=== PATIENT | female | born 1985 | race Caucasian/White ===

== ENCOUNTER 2020-04-29 16:39 | Inpatient (IN) | payer OTHER ==
[~2020-04-29] VITALS: Ht 165.1 cm; Wt 119.4 kg
--- OUTSIDE RECORDS SUMMARY | 2020-04-29 16:46 | CCD ---
Author Author [facility] Organization [facility] Address Unknown Phone Unavailable Care Team Providers Care Supervisory Investigative Specialist Name Role Phone Natty Rabago ANP-BC Unavailable Unavailable Natty Rabagon ANP-BC Unavailable Unavailable ReedNatty Abril ANP-BC Unavailable Unavailable ReedNatty Abril ANP-BC Unavailable Unavailable ReedNatty Abril ANP-BC Unavailable Unavailable Natty Rabago Abril ANP-BC Unavailable Unavailable Natty Rabago Abril ANP-BC Unavailable Unavailable ReedaNtty Abril ANP-BC Unavailable Unavailable ReedNatty Abril ANP-BC Unavailable Unavailable ReedNatty Abril ANP-BC Unavailable Unavailable ReedNatty Abril ANP-BC Unavailable Unavailable ReedNatty Abril ANP-BC Unavailable Unavailable ReedNatty Abril ANP-BC Unavailable Unavailable ReedNatty Abril ANP-BC Unavailable Unavailable ReedNatty Abril ANP-BC Unavailable Unavailable ReedNatty Abril ANP-BC Unavailable Unavailable ReedNatty Abril ANP-BC Unavailable Unavailable ReedNatty Abril ANP-BC Unavailable Unavailable ReedNatty Abril ANP-BC Unavailable Unavailable ReedNatty Abril ANP-BC Unavailable Unavailable ReedNatty Abril ANP-BC Unavailable Unavailable ReedNatty Abril ANP-BC Unavailable Unavailable ReedNatty Abril ANP-BC Unavailable Unavailable ReedNatty Abril ANP-BC Unavailable Unavailable Reed, Natty Abril ANP-BC Unavailable Unavailable Reed, Natty Abril ANP-BC Unavailable Unavailable Reed, Natty Abril ANP-BC Unavailable Unavailable Reed, Natty Abril ANP-BC Unavailable Unavailable Reed, Natty Abril ANP-BC Unavailable Unavailable Reed, Natty Abril ANP-BC Unavailable Unavailable Reed, Natty Abril ANP-BC Unavailable Unavailable Reed, Natty Abril ANP-BC Unavailable Unavailable Reed, Natty Abril ANP-BC Unavailable Unavailable Reed, Natty Abril ANP-BC Unavailable Unavailable Reed, Natty Abril ANP-BC Unavailable Unavailable Reed, Natty Abril ANP-BC Unavailable Unavailable Reed, Natty Abril ANP-BC Unavailable Unavailable Reed, Natty Abril ANP-BC Unavailable Unavailable Reed, Natty Abril ANP-BC Unavailable Unavailable Reed, Natty Abril ANP-BC Unavailable Unavailable Reed, Natty Abril ANP-BC Unavailable Unavailable Reed, Natty Abril ANP-BC Unavailable Unavailable Reed, Natty Abril ANP-BC Unavailable Unavailable Reed, Natty Abril ANP-BC Unavailable Unavailable Reed, Natty Abril ANP-BC Unavailable Unavailable Reed, Natty Abril ANP-BC Unavailable Unavailable Reed, Natty Abril ANP-BC Unavailable Unavailable Reed, Natty Abril ANP-BC Unavailable Unavailable Reed, Natty Abril ANP-BC Unavailable Unavailable Reed, Natty Abril ANP-BC Unavailable Unavailable Reed, Natty Abril ANP-BC Unavailable Unavailable Reed, Natty Abril ANP-BC Unavailable Unavailable Reed, Natty Abril ANP-BC Unavailable Unavailable Reed, Natty Abril ANP-BC Unavailable Unavailable Reed, Natty Abril ANP-BC Unavailable Unavailable Reed, Natty Abril ANP-BC Unavailable Unavailable Reed, Natty Abril ANP-BC Unavailable Unavailable Reed, Natty Abril ANP-BC Unavailable Unavailable Reed, Natty Abril ANP-BC Unavailable Unavailable Reed, Natty Abril ANP-BC Unavailable Unavailable Reed, Natty Abril ANP-BC Unavailable Unavailable Reed, Natty Abril ANP-BC Unavailable Unavailable Reed, Natty Abril ANP-BC Unavailable Unavailable Reed, Natty Abril ANP-BC Unavailable Unavailable Reed, Natty Abril ANP-BC Unavailable Unavailable Reed, Natty Abril ANP-BC Unavailable Unavailable Reed, Natty Abril ANP-BC Unavailable Unavailable Reed, Natty Abril ANP-BC Unavailable Unavailable Reed, Natty Abril ANP-BC Unavailable Unavailable Reed, Natty Abril ANP-BC Unavailable Unavailable Reed, Natty Abril ANP-BC Unavailable Unavailable Reed, Natty Abril ANP-BC Unavailable Unavailable Reed, Natty Abril ANP-BC Unavailable Unavailable Reed, Natty Abril ANP-BC Unavailable Unavailable Reed, Natty Abril ANP-BC Unavailable Unavailable Reed, Natty Abril ANP-BC Unavailable Unavailable Reed, Natty Abril ANP-BC Unavailable Unavailable Reed, Natty Abril ANP-BC Unavailable Unavailable Reed, Natty Abril ANP-BC Unavailable Unavailable Reed, Natty Abril ANP-BC Unavailable Unavailable Reed, Natty Abril ANP-BC Unavailable Unavailable Reed, Natty Abril ANP-BC Unavailable Unavailable Reed, Natty Abril ANP-BC Unavailable Unavailable Reed, Natty Abril ANP-BC Unavailable Unavailable Reed, Natty Abril ANP-BC Unavailable Unavailable Reed, Natty Abril ANP-BC Unavailable Unavailable Reed, Natty Abril ANP-BC Unavailable Unavailable Reed, Natty Abril ANP-BC Unavailable Unavailable Reed, Natty Abril ANP-BC Unavailable Unavailable Reed, Natty Abril ANP-BC Unavailable Unavailable Reed, Natty Abril ANP-BC Unavailable Unavailable Reed, Natty Abril ANP-BC Unavailable Unavailable Reed, Natty Abril ANP-BC Unavailable Unavailable Reed, Natty Abril ANP-BC Unavailable Unavailable Reed, Natty Abril ANP-BC Unavailable Unavailable Reed, Natty Abril ANP-BC Unavailable Unavailable Reed, Natty Abril ANP-BC Unavailable Unavailable Reed, Natty Abril ANP-BC Unavailable Unavailable Reed, Natty Abril ANP-BC Unavailable Unavailable Reed, Natty Abril ANP-BC Unavailable Unavailable Reed, Natty Abril ANP-BC Unavailable Unavailable Reed, Natty Abril ANP-BC Unavailable Unavailable Reed, Natty Abril ANP-BC Unavailable Unavailable Reed, Natty Abril ANP-BC Unavailable Unavailable Reed, Natty Abril ANP-BC Unavailable Unavailable Reed, Natty Abril ANP-BC Unavailable Unavailable Reed, Natty Abril ANP-BC Unavailable Unavailable Reed, Natty Abril ANP-BC Unavailable Unavailable Reed, Natty Abril ANP-BC Unavailable Unavailable Reed, Natty Abril ANP-BC Unavailable Unavailable Reed, Natty Abril ANP-BC Unavailable Unavailable Reed, Natty Abril ANP-BC Unavailable Unavailable Reed, Natty Abril ANP-BC Unavailable Unavailable Reed, Natty Abril ANP-BC Unavailable Unavailable Reed, Natty Abril ANP-BC Unavailable Unavailable Reed, Natty Abril ANP-BC Unavailable Unavailable Reed, Natty Abril ANP-BC Unavailable Unavailable Reed, Natty Abril ANP-BC Unavailable Unavailable Reed, Natty Abril ANP-BC Unavailable Unavailable Reed, Natty Abril ANP-BC Unavailable Unavailable Reed, Natty Abril ANP-BC Unavailable Unavailable Reed, Natty Abril ANP-BC Unavailable Unavailable Reed, Natty Abril ANP-BC Unavailable Unavailable Reed, Natty Abril ANP-BC Unavailable Unavailable Ered, Natty Abril ANP-BC Unavailable Unavailable Reed, Natty Abril ANP-BC Unavailable Unavailable Reed, Natty Abril ANP-BC Unavailable Unavailable Reed, Natty Abril ANP-BC Unavailable Unavailable Reed, Natty Abril ANP-BC Unavailable Unavailable Reed, Natty Abril ANP-BC Unavailable Unavailable Reed, Natty Abril ANP-BC Unavailable Unavailable Reed, Natty Abril ANP-BC Unavailable Unavailable Reed, Natty Abril ANP-BC Unavailable Unavailable Reed, Natty Abril ANP-BC Unavailable Unavailable Reed, Natty Abril ANP-BC Unavailable Unavailable Reed, Natty Abril ANP-BC Unavailable Unavailable Reed, Natty Abril ANP-BC Unavailable Unavailable Reed, Natty Abril ANP-BC Unavailable Unavailable Reed, Natty Abril ANP-BC Unavailable Unavailable Reed, Natty Abril ANP-BC Unavailable Unavailable Reed, Natty Abril ANP-BC Unavailable Unavailable Reed, Natty Abril ANP-BC Unavailable Unavailable Reed, Natty Abril ANP-BC Unavailable Unavailable Reed, Natty Abril ANP-BC Unavailable Unavailable Reed, Natty Abril ANP-BC Unavailable Unavailable Reed, Natty Abril ANP-BC Unavailable Unavailable Reed, Natty Abril ANP-BC Unavailable Unavailable Reed, Natty Abril ANP-BC Unavailable Unavailable Reed, Natty Abril ANP-BC Unavailable Unavailable Reed, Natty Abril ANP-BC Unavailable Unavailable Reed, Natty Abril ANP-BC Unavailable Unavailable Reed, Natty Abril ANP-BC Unavailable Unavailable Reed, Natty Abril ANP-BC Unavailable Unavailable Reed, Natty Abril ANP-BC Unavailable Unavailable Reed, Natty Abril ANP-BC Unavailable Unavailable Reed, Natty Abril ANP-BC Unavailable Unavailable Reed, Natty Abril ANP-BC Unavailable Unavailable Reed, Natty Abril ANP-BC Unavailable Unavailable Reed, Natty Abril ANP-BC Unavailable Unavailable Reed, Natty Abril ANP-BC Unavailable Unavailable Reed, Natty Abril ANP-BC Unavailable Unavailable Reed, Natty Abril ANP-BC Unavailable Unavailable Reed, Natty Abril ANP-BC Unavailable Unavailable Reed, Natty Abril ANP-BC Unavailable Unavailable Reed, Natty Abril ANP-BC Unavailable Unavailable Reed, Natty Abril ANP-BC Unavailable Unavailable Reed, Natty Abril ANP-BC Unavailable Unavailable Reed, Natty Abril ANP-BC Unavailable Unavailable Reed, Natty Abril ANP-BC Unavailable Unavailable Reed, Natty Abril ANP-BC Unavailable Unavailable Reed, Natty Abril ANP-BC Unavailable Unavailable Reed, Natty Abril ANP-BC Unavailable Unavailable Reed, Natty Abril ANP-BC Unavailable Unavailable Reed, Natty Abril ANP-BC Unavailable Unavailable Reed, Natty Abril ANP-BC Unavailable Unavailable Reed, Natty Abril ANP-BC Unavailable Unavailable Reed, Natty Abril ANP-BC Unavailable Unavailable Reed, Natty Abril ANP-BC Unavailable Unavailable Reed, Natty Abril ANP-BC Unavailable Unavailable Reed, Natty Abril ANP-BC Unavailable Unavailable Reed, Natty Abril ANP-BC Unavailable Unavailable Reed, Natty Abril ANP-BC Unavailable Unavailable Reed, Natty Abril ANP-BC Unavailable Unavailable Reed, Natty Abril ANP-BC Unavailable Unavailable Reed, Natty Abril ANP-BC Unavailable Unavailable Reed, Natty Abril ANP-BC Unavailable Unavailable Reed, Natty Abril ANP-BC Unavailable Unavailable Reed, Natty Abril ANP-BC Unavailable Unavailable Reed, Natty Abril ANP-BC Unavailable Unavailable Reed, Natty Abril ANP-BC Unavailable Unavailable Reed, Natty Abril ANP-BC Unavailable Unavailable Reed, Natty Abril ANP-BC Unavailable Unavailable Re-disclosure Warning The records that you are about to access may contain information from federally-assisted alcohol or drug abuse programs. If such information is present, then the following federally mandated warning applies: This information has been disclosed to you from records protected by federal confidentiality rules (42 CFR part 2). The federal rules prohibit you from making any further disclosure of this information unless further disclosure is expressly permitted by the written consent of the person to whom it pertains or as otherwise permitted by 42 CFR part 2. A general authorization for the release of medical or other information is NOT sufficient for this purpose. The Federal rules restrict any use of the information to criminally investigate or prosecute any alcohol or drug abuse patient.The records that you are about to access may contain highly sensitive health information, the redisclosure of which is protected by Article 27-F of the [facility] Public Health law. If you continue you may have access to information: Regarding HIV / AIDS; Provided by facilities licensed or operated by the [facility] Office of Mental Health; or Provided by the [facility] Office for People With Developmental Disabilities. If such information is present, then the following [facility] mandated warning applies: This information has been disclosed to you from confidential records which are protected by state law. State law prohibits you from making any further disclosure of this information without the specific written consent of the person to whom it pertains, or as otherwise permitted by law. Any unauthorized further disclosure in violation of state law may result in a fine or alf sentence or both. A general authorization for the release of medical or other information is NOT sufficient authorization for further disc losure. Allergies and Adverse Reactions Type Description Substance Reaction Status Data Source(s ) No Known Drug Allergies No Known Drug Allergies [facility] No Known Environmental Allergies No Known Environmental Al lergies [facility] No Known Food Allergies No Known Food Allergies [facility] Drug Allergy NKDA NKDA [facility] ([facility]) Family History Family Member Name Family Member Gender Family Member Status Date o f Status Description Data Source(s) Unknown Male Problem [facility] ([facility]) Encounters Encounter Providers Location Date Indications Data Source(s ) Outpatient Attender: Abril LANEBCConsultant: Abril LANEBC 04/26/2019 11:11:00 AM EST - 04/26/2019 11:11:[address] [facility] Outpatient Attender: [facility]il [facility] 04/07 10:20:00 AM EST [facility] ([facility]) Outpatient Attender: Abril EVANSonsultant: Abril LANE 04/05/2019 06:59:00 AM EST - 04/05/2019 06:59:[address] [facility] Outpatient Attender: Abril EVANSonsultant: Abril LANE 03/27/2019 12:21:00 PM EST - 03/27/2019 01:21:[address] [facility] Outpatient Attender: Abril FITZGERALD 03/26/2019 03:34:00 PM EST [facility] Outpatient Attender: Abril FITZGERALD 03/07 02:09:00 PM EST - 03/26/2019 02:09:[address] [facility] Outpatient Attender: Abril [facility]GERAL[facility] 03/07 01:20:00 PM EST [facility] ([facility]) Medications Medication Brand Name Start Date Product Form Dose Route Admi nistrative Instructions Pharmacy Instructions Status Indications Reaction Description Data Source(s) No Active Medications 03/26/2019 12:00:00 AM EST completed [facility] ([facility]) Tri-Sprintec Tri-Sprintec 03/26/2019 12:00:00 AM EST ORAL active [facility] ([facility]) Sulfamethoxazole 800 MG / Trimethoprim 160 MG Oral Tab let Sulfamethoxazole/Trimethoprim DS 03/26/2019 12:00:00 AM EST ORAL completed [facility] ([facility]) Insurance Providers Payer name Policy type / Coverage type Policy ID Covered constitution party ID Covered constitution party's relationship to la Policy La Plan Information [facility] COMMUNITY PLAN [facility] [id number] SP [id number] [facility] COMMUNTY PLAN [id number] UNHC COMMUNITY PLAN XIX [id number] 18 [id number] UNHC AMERICHOICE XIX -HMO [id number] 18 [id number] Managed Care - [facility] Community Plan P [id number] S [id number] Medicaid S [id number] S [id number] Managed Care - Community Plan [facility] P [id number] S [id number] [facility] Community Plan Medicaid [id number] Self [id number] UN COMMUNITY PLAN [id number] 18 [id number] [facility] COMMUNITY PLAN XIX -I/P [id number] 18 [id number] [facility] I [id number] Self [id number] MEDICAID [id number] SP [id number] SELF PAY UNAVAILABLE SP UNAVAILA BLE BCBS [place] PPO [id number] SP [id number] Problems, Conditions, and Diagnoses Code Display Name Description Problem Type Effective Dates Data Source(s) Z6841 Body mass index (BMI) 40.0-44.9, adult B edouard mass index (BMI) 40.0-44.9, adult Diagnosis 04/26/2019 11:11:00 AM [facility] E669 Obesity, unspecified Obesity, unspecified Diagnosis 04/26/2019 11:11:00 AM [facility] Z113 Encounter for screening for infections with a predominantly sexual mode of transmission Encounter for screening for infections w ith a predominantly sexual mode of transmission Diagnosis 04/26/2019 11:11:00 AM [facility] [id number] Encounter for gynecological examination (general) (routine) without abnormal findings Encounter for gynecological examination (general) (routine) without abnormal findings Diagnosis 04/26/2019 11:11:00 AM [facility] Z0001 Encounter for general adult medical exam ination with abnormal findings Encounter for general adult medical examination with abnormal findings Diagnosis 04/26/2019 11:11:00 AM [facility] R300 Dysuria Dysuria Diagnosis 04/05/2019 06:59:00 AM [facility] [id number] Other salvage determiner (current) drug therapy O ther senior care (current) drug therapy Diagnosis 04/05/2019 06:59:00 AM [facility] Z8481 Family history of carrier of genetic dis ease Family history of carrier of genetic disease Diagnosis 04/05/2019 06:59:00 AM [facility] Z6842 Body mass index (BMI) 45.0-49.9, adult B edouard mass index (BMI) 45.0-49.9, adult Diagnosis 03/26/2019 02:09:00 PM [facility] [id number] Encounter for initial prescription of co ntraceptive pills Encounter for initial prescription of contraceptive pills Diagnosis 03/26/2019 02:09:00 PM [facility] 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, right eye, 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, right eye, normal vision left eye Diagnosis 020 02:09:00 PM [facility] N390 Urinary tract infection, site not specif ied Urinary tract infection, site not specified Diagnosis 03/26/2019 02:09:00 PM [facility] [id number] Unspecified sprain of left wrist, initia l encounter Unspecified sprain of left wrist, initial encounter Diagnosis 03/26/2019 02:09:00 PM [facility] Surgeries/Procedures Procedure Description Date Indications Data Source(s) Brief Emotional/Behav Assessment W/ Scoring Doc Per Standard Inst 03/26/2019 12:00:00 AM EST [facility] ([facility]) Results ID Date Data Source [id number] 04/26/2019 11:49:00 AM EST [facility] ([facility]) Name Value Range Interpretation Code Description Data Celeste rce(s) Supporting Document(s) Cytology report of Cervical or vaginal smear or scrapi ng Cyto stain.thin prep <pending> [facility] ([facility]) ID Date Data Source [id number] 04/30/2019 07:07:00 AM [facility] Name Value Range Interpretation Code Description Data Celeste rce(s) Supporting Document(s) SOURCE: Genital [facility] Chlamydia trachomatis rRNA [Presence] in Unspecified specimen by Probe and target amplification method Negative Negative [facility] Neisseria gonorrhoeae rRNA [Presence] in Unspecified specimen by Probe and target amplification method Negative Negative [facility] Trichomonas vaginalis DNA [Presence] in Unspecified specimen by Probe and target amplification method Negative Negative [facility] ID Date Data Source [id number] 04/05/2019 06:35:00 PM [facility] Name Value Range Interpretation Code Description Data Celeste rce(s) Supporting Document(s) [facility] Cholesterol [Mass/volume] in Serum or Plasma 189 MG/DL 131 - 200 [facility] Deprecated Triglyceride [Mass/volume] in Serum or Plasma 119 MG/DL 3 5 - 160 [facility] HDL 68 MG/DL 29 - 86 [facility] Cholesterol in LDL/Cholesterol in HDL [Mass Ratio] in Serum or Plasma 108 mg/dL 65 - 175 [facility] Cholesterol.total/Cholesterol in HDL [Mass Ratio] in Serum o r Plasma 2.8 3.2 - 4.[address] [facility] LDL/HDL 1.59 1.47 - 3.22 [facility] ital CVE RISK CHOL/HDL LDL/HDLMEN: 1/2 AVERAGE 3.43 1.00 AVERAGE 4.97 3.55 2X AVERAGE 9.55 6.25 3X AVERAGE 23.99 7.99WOMEN: 1/2 AVERAGE 3.27 1.47 AVERAGE 4.44 3.22 2X AVERAGE 7.05 5.03 3X AVERAGE 11.04 6.14 ID Date Data Source [id number] 04/05/2019 06:23:00 PM [facility] Name Value Range Interpretation Code Description Data Celeste rce(s) Supporting Document(s) Thyrotropin [Units/volume] in Serum or Plasma by Detec tion limit <= 0.05 mIU/L 4.84 uIU/mL 0.47 - 5.01 [facility] ID Date Data Source [id number] 04/05/2019 06:10:00 PM [facility] Name Value Range Interpretation Code Description Data Celeste rce(s) Supporting Document(s) COMPREHENSIVE METABOLIC PANEL [facility] COMPREHENSIVE METABOLIC PANEL Sodium [Moles/volume] in Serum or Plasma 141 mEq/L 134 - 153 [facility] Potassium [Moles/volume] in Serum or Plasma 4.4 mEq/L 3.6 - 5.0 [facility] Chloride [Moles/volume] in Serum or Plasma 104 mEq/L 98 - 107 [facility] Carbon dioxide, total [Moles/volume] in Serum or Plasma 28 MEQ/L 22 - 30 [facility] Glucose [Mass/volume] in Serum or Plasma 94 MG/DL 65 - 110 [facility] BUN 14 MG/DL 7 - 21 [facility] Creatinine [Mass/volume] in Serum or Plasma 0.8 MG/DL 0.7 - 1.5 [facility] BUN/CREAT 18 8 - 27 [facility] Protein [Mass/volume] in Serum or Plasma 7.2 G/DL 6.3 - 8.2 [facility] Albumin [Mass/volume] in Serum or Plasma 4.3 G/DL 3.9 - 5.0 [facility] Globulin [Mass/volume] in Serum by calculation 2.9 GM/DL 2.4 - 3.2 [facility] A/G RATIO 1.5 0.8 - 2.0 [facility] Calcium [Mass/volume] in Serum or Plasma 9.5 MG/DL 8.4 - 10.2 [facility] Bilirubin.total [Mass/volume] in Serum or Plasma <0.7 MG/DL 0.2 - 1.3 [facility] Alkaline phosphatase [Enzymatic activity/volume] in Serum or Plasma 57 U/L 38 - 126 [facility] Aspartate aminotransferase [Enzymatic activity/volume] in Serum or Plasma 15 U/L 5 - 40 [facility] Alanine aminotransferase [Enzymatic activity/volume] in Seru m or Plasma 16 U/L 7 - 56 [facility] Anion gap 3 in Serum or Plasma 9.0 mmol/L 8.0 - 16.0 [facility] AGE 33 yrs [facility] NON-AA GFR >60 mL/min [facility] ital AFR AMER GFR >60 mL/min [facility] Ho spital Male GFR In terprentation 20-49 yrs >60 mL/min Normal 50-59 yrs >56 mL/min Normal 60-69 yrs >49 mL/min Normal 70-79yrs >42 mL/min Normal 80 and above >35 mL/min Normal Female GFR Interpretation 20-39 yrs >60 mL/min Normal 40-49 yrs >58 mL/min Normal 50-59 yrs >51 mL/min Normal 60-69 yrs >45 mL/min Normal 70-79 yrs >39 mL/min Normal 80 and above >32 mL/min Normal ID Date Data Source [id number] 04/05/2019 06:08:[address] [facility] Name Value Range Interpretation Code Description Data Celeste rce(s) Supporting Document(s) CBC W/AUTOMATED DIFF [facility] COMPLETE BLOOD COUNT Leukocytes [#/volume] in Blood by Automated count 6.7 10^3/uL 4.2 - [address] [facility] Erythrocytes [#/volume] in Blood by Automated count 4.20 10^6/uL 4. 20 - 5.40 [facility] Hemoglobin [Mass/volume] in Blood 12.4 g/dL 12.0 - 16.0 [facility] Hematocrit [Volume Fraction] of Blood by Automated count 39.2 % 3 7.0 - 47.0 [facility] Erythrocyte mean corpuscular volume [Entitic volume] by Auto mated count 93.3 fL 81.0 - 101 [facility] Erythrocyte mean corpuscular hemoglobin [Entitic mass] by Automated count 29.5 pg 27.0 - 34.0 [facility] Erythrocyte mean corpuscular hemoglobin concentration [Mass/volume] by Automated count 31.6 g/dL 31.0 - 36.0 [facility] Erythrocyte distribution width [Ratio] by Automated count 14.4 % 11.5 - 14.5 [facility] Platelets [#/volume] in Blood by Automated count 303 10^3/uL 150 - [address] [facility] Platelet mean volume [Entitic volume] in Blood by Automated count 9.8 fL 7.4 - 10.4 [facility] Neutrophils/100 leukocytes in Blood by Automated count 59.9 % 37. 0 - 80.0 [facility] Lymphocytes/100 leukocytes in Blood by Manual count 28.7 % 25.0 - 40.0 [facility] Monocytes/100 leukocytes in Blood by Automated count 7.6 % 3.0 - 8.0 [facility] Eosinophils/100 leukocytes in Blood by Automated count 3.3 % 0.0 - 7.0 [facility] Basophils/100 leukocytes in Blood by Automated count 0.4 % 0.0 - 2.5 [facility] %IG 0.1 % 0.0 - 0.[address] 0.0 % 0.0 - 0.0 [facility] Neutrophils [#/volume] in Blood by Automated count 4.02 10^3/uL 2.00 - 6.90 [facility] Lymphocytes [#/volume] in Blood by Automated count 1.93 10^3/uL 0.60 - 3.40 [facility] Monocytes [#/volume] in Blood by Automated count 0.51 10^3/uL 0.00 - 0.90 [facility] Eosinophils [#/volume] in Blood by Automated count 0.22 10^3/uL 0.00 - 0.70 [facility] Basophils [#/volume] in Blood by Automated count 0.03 10^3/uL 0.00 - 0.20 [facility] #IG 0.01 10^3/uL 0.00 - 0.10 [facility] #NRBC 0.00 10^3/uL 0.00 - 0.00 [facility] ospital MANUAL DIFF NOT INDICATED [facility] RBC MORPH NOT INDICATED [facility] spital ID Date Data Source [id number] 04/05/2019 06:06:[address] [facility] Name Value Range Interpretation Code Description Data Celeste rce(s) Supporting Document(s) Hemoglobin A1c/Hemoglobin.total in Blood 5.4 % 4.4 - 6.1 [facility] {A1]{HB] ID Date Data Source [id number] 04/05/2019 07:10:00 AM EST [facility] ([facility]) Name Value Range Interpretation Code Description Data Celeste rce(s) Supporting Document(s) Thyrotropin [Units/volume] in Serum or Plasma 4.84 uIU/mL 0.47-5.01 [facility] Is patient fasting? N ID Date Data Source [id number] 04/05/2019 07:10:00 AM EST [facility] ([facility]) Name Value Range Interpretation Code Description Data Celeste rce(s) Supporting Document(s) Cve Panel (SEE NOTE) [facility] ([facility]) Is patient fasting? N Cholesterol 189 mg/dL 131-200 [facility] ([facility]) Is patient fasting? N Triglycerides 119 mg/dL 35-160 [facility] ([facility]) Is patient fasting? N Risk Factor 2.8 3.2-4.4 Below low normal [facility] ([facility]) Is patient fasting? N LDL 108 mg/dL 65-175 [facility] ([facility]) Is patient fasting? N HDL 68 mg/dL 29-86 [facility] ([facility]) Is patient fasting? N LDL/HDL 1.59 1.47-3.22 [facility] ([facility]) Is patient fasting? N ID Date Data Source [id number] 04/05/2019 07:10:00 AM EST [facility] ([facility]) Name Value Range Interpretation Code Description Data Celeste rce(s) Supporting Document(s) Hemoglobin A1c/Hemoglobin.total in Blood 5.4 % 4.4-6.1 [facility] ([facility]) Is patient fasting? N ID Date Data Source [id number] 04/05/2019 07:10:00 AM EST [facility] ([facility]) Name Value Range Interpretation Code Description Data Celeste rce(s) Supporting Document(s) Comprehensive Metabo (SEE NOTE) [facility] ( [facility]) Is patient fasting? N Sodium 141 meq/L 134-153 [facility] ([facility]) Is patient fasting? N Potassium 4.4 meq/L 3.6-5.0 [facility] ([facility]) Is patient fasting? N Chloride 104 meq/L 98-107 [facility] Is patient fasting? N Glucose 94 mg/dL 65-110 [facility] ([facility]) Is patient fasting? N Co2 28 meq/L 22-30 [facility] ([facility]) Is patient fasting? N BUN 14 mg/dL 7-21 [facility] Is patient fasting? N Creatinine 0.8 mg/dL 0.7-1.5 [facility] ([facility]) Is patient fasting? N BUN/Creat 18 8-27 [facility] ([facility]) Is patient fasting? N Total Protein 7.2 g/dL 6.3-8.2 [facility] ([facility]) Is patient fasting? N Globulin 2.9 GM/DL 2.4-3.2 [facility] Is patient fasting? N A/G Ratio 1.5 0.8-2.0 [facility] ([facility]) Is patient fasting? N Albumin 4.3 g/dL 3.9-5.0 [facility] ([facility]) Is patient fasting? N Calcium 9.5 mg/dL 8.4-10.2 [facility] ([facility]) Is patient fasting? N Total Bili <0.7 mg/dL 0.2-1.3 [facility] Is patient fasting? N SGPT/Alt 16 U/L 7-56 [facility] ([facility]) Is patient fasting? N Alkaline Phos 57 U/L 38-126 [facility] ([facility]) Is patient fasting? N Sgot/Ast 15 U/L 5-40 [facility] ([facility]) Is patient fasting? N Age 33 yrs [facility] ([facility]) Is patient fasting? N Anion Gap 9.0 mmol/L 8.0-16.0 [facility] ([facility]) Is patient fasting? N Non-Aa GFR >60 mL/min [facility] ([facility]) Is patient fasting? N Afr Amer GFR >60 mL/min [facility] Is patient fasting? N ID Date Data Source [id number] 04/05/2019 07:10:00 AM EST [facility] ([facility]) Name Value Range Interpretation Code Description Data Celeste rce(s) Supporting Document(s) WBC 6.7 10^3/uL 4.2-11.0 [facility] ([facility]) Is patient fasting? N CBC W/Automated Diff (SEE NOTE) [facility] ( [facility]) Is patient fasting? N Hemoglobin 12.4 g/dL 12.0-16.0 [facility] ([facility]) Is patient fasting? N RBC 4.20 10^6/uL 4.20-5.40 [facility] ([facility]) Is patient fasting? N MCV 93.3 fL 81.0-101 [facility] ([facility]) Is patient fasting? N MCH 29.5 pg 27.0-34.0 [facility] ([facility]) Is patient fasting? N Hematocrit 39.2 % 37.0-47.0 [facility] ([facility]) Is patient fasting? N MCHC 31.6 g/dL 31.0-36.0 [facility] ([facility]) Is patient fasting? N RDW 14.4 % 11.5-14.5 [facility] ([facility]) Is patient fasting? N Neut 59.9 % 37.0-80.0 [facility] ([facility]) Is patient fasting? N MPV 9.8 fL 7.4-10.4 [facility] ([facility]) Is patient fasting? N Platelets 303 10^3/uL 150-450 [facility] ([facility]) Is patient fasting? N Lymph 28.7 % 25.0-40.0 [facility] ([facility]) Is patient fasting? N Dewey 7.6 % 3.0-8.0 [facility] ([facility]) Is patient fasting? N Eos 3.3 % 0.0-7.0 [facility] ([facility]) Is patient fasting? N %Ig 0.1 % 0.0-0.0 Above high normal [facility] ([facility]) Is patient fasting? N Baso 0.4 % 0.0-2.5 [facility] ([facility]) Is patient fasting? N %NRBC 0.0 % 0.0-0.0 [facility] ([facility]) Is patient fasting? N #Neut 4.02 10^3/uL 2.00-6.90 [facility] ([facility]) Is patient fasting? N #Dewey 0.51 10^3/uL 0.00-0.90 [facility] ([facility]) Is patient fasting? N #Eos 0.22 10^3/uL 0.00-0.70 [facility] ([facility]) Is patient fasting? N #Lymph 1.93 10^3/uL 0.60-3.40 [facility] ([facility]) Is patient fasting? N #Baso 0.03 10^3/uL 0.00-0.20 [facility] ([facility]) Is patient fasting? N #Ig 0.01 10^3/uL 0.00-0.10 [facility] ([facility]) Is patient fasting? N #NRBC 0.00 10^3/uL 0.00-0.00 [facility] ([facility]) Is patient fasting? N RBC Morph NOT INDICATED [facility] ([facility]) Is patient fasting? N Manual Diff NOT INDICATED [facility] ([facility]) Is patient fasting? N ID Date Data Source [id number] 03/28/2019 11:15:00 AM EST [facility] [address] [place] [address] PHONE: [phone] FAX: [phone] Name .................. : BAL Beyer Acct Number.................. : [id number] ROOM. ................. : Number ................... : [id number] Stay type ............. : O/P Discharge Date......... ... : 03/27/19 Admit Date ......... : 03/27/19 Admit Phys .................... : REED MCDANIELS Date of ....... : 1985 Family Phys ................... : REED MCDANIELS Phone .................. : [phone] Age ................................ : 33 Film# .................. .:[id number] Sex ................................. : F Unsigned transcriptions are preliminary reports and do not represent a medical or legal document [place] [id number] COMPLETE:03/27/19 12:25 [id number] (REASON FOR PROCESS PAIN LEFT WRIST SERIES: FINDINGS: No evidence for fractures, subluxation or adjacent soft tissue swelling is noted. IMPRESSION: Unremarkable left wrist. Electronically Reviewed and Signed By Abdiel Pyle MD , 03/28/19 11:15, [facility] Transcribe Initials: ALL , Transcribe Date: 03/27/19 22:06, Dictation Date: Copy for: 710 MED REC Page 1 of 1 Name Value Range Interpretation Code Description Data Celeste rce(s) Supporting Document(s) ID Date Data Source [id number] 03/26/2019 03:38:00 PM EST [facility] ([facility]) Name Value Range Interpretation Code Description Data Celeste rce(s) Supporting Document(s) Color of Urine yellow [facility] ([facility]) Appearance of Urine clear [facility] ([facility]) Spec [place] 1.020 [facility] ([facility]) pH of Urine by Test strip 5 [facility] NT ([facility]) Leukocytes + [facility] ([facility]) Inhouse Glucose normal [facility] ([facility]) Protein [Presence] in Urine by Test strip ++ [facility] ([facility]) Nitrate [Presence] in Urine negative [facility] ([facility]) Ketones [Presence] in Urine by Test strip + [facility] ([facility]) Bilirubin.total [Presence] in Urine by Test strip negative [facility] ([facility]) Urobilinogen normal [facility] ([facility]) Blood type and Indirect antibody screen panel - Blood 50 [facility] ([facility]) ID Date Data Source [id number] 03/28/2019 10:42:00 AM [facility] Does the specimen need to be recollected ?: YREASON REJECTED:: TOO OLD, SPECIMEN CUP EMPTYTEST(S) ORDERED:: URINE CULTURE Name Value Range Interpretation Code Description Data Celeste rce(s) Supporting Document(s) Laboratory URINE CULTURE [facility] Laboratory studies (set) TOO OLD, SPECIMEN CUP EMPTY [facility] One or more of the tests that youordered cannot be performed.Please recollect, reorder and resubmit. ID Date Data Source [id number] 03/26/2019 03:34:00 PM EST [facility] ([facility]) Name Value Range Interpretation Code Description Data Celeste rce(s) Supporting Document(s) Laboratory URINE CULTURE [facility] ([facility]) Laboratory studies (set) TOO OLD, SPECIME <SEE NOTE> [facility] ([facility]) TOO OLD, SPECIMEN CUP EMPTY One or more of the tests that you ordered cannot be performed. Please recollect, reorder and resubmit. ID Date Data Source [id number] 03/26/2019 11:30:00 AM EST [facility] ([facility]) Name Value Range Interpretation Code Description Data Celeste rce(s) Supporting Document(s) Lab - Specimen Rejec (SEE NOTE) [facility] ( [facility]) Specimen Integrity/Specimen Recollection The patient sample needs to be resubmitted for the following reason: Test(s) Ordered URINE C/S [facility] ([facility]) Rejection Reason QNS [facility] ([facility]) { One or more of the tests you ordered cannot be performed. { Please recollect, reorder, and resubmit if needed. ID Date Data Source [id number] 03/28/2019 12:15:00 PM [facility] Name Value Range Interpretation Code Description Data Celeste rce(s) Supporting Document(s) LAB - SPECIMEN REJECTION [facility] Specimen Integrity/Specimen Recollection The patient sample needs to be resubmitted for the following reason: Test(s) Ordered URINE C/S [facility] Rejection Reason QNS [facility] { One or more of the tests you ordered cannot be performed.{ Please recollect, reorder, and resubmit if needed. Procedure Vital Signs ID Date Data Source [id number] Name Value Range Interpretation Code Description Data Source(s) Body surface area 2.24 m2 2.24 m2 [facility] Body mass index (BMI) [Ratio] 44.8 kg/m2 44.8 k g/m2 [facility] ([facility]) Body height 65 [in_i] 65 [in_i] [facility] ([facility]) 5'5" Body weight 122.018 kg 122.018 kg [facility] ([facility]) Body weight 269.00 [lb_av] 269.00 [lb_av] [facility] ([facility]) Oxygen saturation in Arterial blood by Pulse oximetry 98 % 98 % [facility] ([facility]) Respiratory rate 18 /min 18 /min [facility] ( [facility]) Body temperature 98.4 [degF] 98.4 [degF] [facility] ([facility]) Heart rate 92 /min 92 /min [facility] ([facility]) Diastolic blood pressure 64 mm[Hg] 64 mm[Hg] [facility] ([facility]) Systolic blood pressure 104 mm[Hg] 104 mm[Hg] [facility] Body surface area 2.26 m2 2.26 m2 [facility] ([facility]) Body mass index (BMI) [Ratio] 45.8 kg/m2 45.8 k g/m2 [facility] ([facility]) Body height 65 [in_i] 65 [in_i] [facility] ([facility]) 5'5" Body weight 124.740 kg 124.740 kg [facility] ([facility]) Body weight 275.00 [lb_av] 275.00 [lb_av] [facility] ([facility]) Oxygen saturation in Arterial blood by Pulse oximetry 99 % 99 % [facility] ([facility]) Respiratory rate 18 /min 18 /min [facility] ( [facility]) Body temperature 97.9 [degF] 97.9 [degF] [facility] ([facility]) Heart rate 82 /min 82 /min [facility] ([facility]) Diastolic blood pressure 80 mm[Hg] 80 mm[Hg] [facility] ([facility]) Systolic blood pressure 124 mm[Hg] 124 mm[Hg] M [facility] ([facility])
[2020-04-29] MEDS ORDERED: TRI-TAB (16:58)
--- NOTE | 2020-04-29 17:18 | REP ---
INDICATION: htn with vision changes and headache. COMPARISON: None. TECHNIQUE: CT BRAIN PERFORMED IN THE AXIAL PLANE. CORONAL RECONSTRUCTION IMAGES ARE PERFORMED. FINDINGS: Lateral ventricles are midline and symmetric and without dilatation or displacement. Third and 4th ventricles grossly intact. Basal ganglia symmetric and normal. Diaz-white junction differentiation is maintained. There is no intra or extra-axial hemorrhage, vascular territory infarct or mass. No extra-axial fluid collection. Brainstem was intact. Cerebellum without atrophy. There is no posterior fossa bleed. The bone windows show mastoids and visualized sinuses clear. The skull base and calvarium are without fracture or focal lesion. IMPRESSION: Negative noncontrast CT brain. No intracranial hemorrhage, acute infarct, edema, mass or other significant finding. Sinuses, mastoids, the skull base and calvarium unremarkable <Electronically signed by Gennaro Verduzco > 04/29/20 [id number]
--- OUTSIDE RECORDS SUMMARY | 2020-04-29 17:36 | CCD ---
Author Author [facility] Organization [facility] Address Unknown Phone Unavailable Care Team Providers Care Clod Puller Name Role Phone Natty Rabago ANP-BC Unavailable Unavailable Natty Rabagon ANP-BC Unavailable Unavailable ReedNatty Abril ANP-BC Unavailable Unavailable ReedNatty Abril ANP-BC Unavailable Unavailable ReedNatty Abril ANP-BC Unavailable Unavailable Natty Rabago Abril ANP-BC Unavailable Unavailable Natty Rabago Abril ANP-BC Unavailable Unavailable ReedNatyt Abril ANP-BC Unavailable Unavailable ReedNatty Abril ANP-BC [...] Unavailable Unavailable ReedNatty Abril ANP-BC Unavailable Unavailable Reed Natty Abril ANP-BC Unavailable Unavailable Reed, Natty Arbil ANP-BC Unavailable Unavailable Reed, Natty Abril ANP-BC [...] Unavailable Reed, Natty Abril ANP-BC Unavailable Unavailable Rede, Natty Abril ANP-BC Unavailable Unavailable Reed, Natty [...] is protected by Article 27-F of the [facility] Public Health law. If you continue you may have access to information: Regarding HIV / AIDS; Provided by facilities licensed or operated by the [facility] Office of Mental Health; or Provided by the [facility] Office for People With Developmental Disabilities. If such information is present, then the following [facility] mandated warning applies: This information has been [...] law may result in a fine or prison sentence or both. A general authorization for the release of medical or other information is NOT sufficient authorization for further disc losure. Allergies and Adverse Reactions Type Description Substance Reaction Status Data Source(s ) No Known Drug Allergies No Known Drug Allergies [facility] No Known Environmental Allergies No Known Environmental Al lergies [facility] No Known Food Allergies No Known Food Allergies [facility] Drug Allergy NKDA NKDA [facility] ([facility]) Family History Family Member Name Family Member Gender Family Member Status Date o f Status Description Data Source(s) Unknown Male Problem [facility] ([facility]) Encounters Encounter Providers Location Date Indications Data Source(s ) Outpatient Attender: Abril LANEBCConsultant: Abril LANEBC 04/26/2019 11:11:00 AM EST - 04/26/2019 11:11:00 AM EST [facility] Outpatient Attender: Abril FITZGERALD [facility] 04/07 10:20:00 AM EST [facility] ([facility]) Outpatient Attender: Abril EVANSonsultant: Abril LANE 04/05/2019 06:59:00 AM EST - 04/05/2019 06:59:00 AM EST [facility] Outpatient Attender: Abril EVANSonsultant: Abril LANE 03/27/2019 12:21:00 PM EST - 03/27/2019 01:21:00 PM EST [facility] Outpatient Attender: Abril FITZGERALD 03/26/2019 03:34:00 PM EST [facility] Outpatient Attender: Abril FITZGERALD 03/07 02:09:00 PM EST - 03/26/2019 02:09:00 PM EST [facility] Outpatient Attender: Abril FITZGERALD Family Practice 03/07 01:20:00 PM EST [facility] ([facility]) Medications Medication Brand Name Start Date Product Form Dose Route Admi nistrative Instructions Pharmacy Instructions Status Indications Reaction Description Data Source(s) No Active Medications 03/26/2019 12:00:00 AM EST completed [facility] ([facility]) Tri-Sprintec Tri-Sprintec 03/26/2019 12:00:00 AM EST ORAL active [facility] ([facility]) Sulfamethoxazole 800 MG / Trimethoprim 160 MG Oral Tab let Sulfamethoxazole/Trimethoprim DS 03/26/2019 12:00:00 AM EST ORAL completed [facility] ([facility]) Insurance Providers Payer name Policy type / Coverage type Policy ID Covered alliance party ID Covered alliance party's relationship to la Policy La Plan Information [facility] COMMUNITY PLAN [facility] [id number] SP [id number] [facility] COMMUNTY PLAN [id number] UNHC COMMUNITY PLAN XIX [id number] 18 [id number] UNHC AMERICHOICE XIX -HMO [id number] 18 [id number] Managed Care - [facility] Community Plan P [id number] S [id number] Medicaid S [id number] Managed Care - Community Plan [facility] P [id number] S [id number] [facility] Community Plan Medicaid [id number] Self [id number] UN COMMUNITY PLAN [id number] 18 [id number] [facility] COMMUNITY PLAN XIX -I/P [id number] 18 [id number] [facility] I [id number] Self [id number] MEDICAID [id number] SP [id number] SELF PAY UNAVAILABLE SP UNAVAILA BLE BCBS [place] PPO [id number] SP [id number] Problems, Conditions, and Diagnoses Code Display Name Description Problem Type Effective Dates Data Source(s) Z6841 Body mass index (BMI) 40.0-44.9, adult B edouard mass index (BMI) 40.0-44.9, adult Diagnosis 04/26/2019 11:11:00 AM [facility] E669 Obesity, unspecified Obesity, unspecified Diagnosis 04/26/2019 11:11:00 AM [facility] Z113 Encounter for screening for infections with a predominantly sexual mode of transmission Encounter for screening for infections w ith a predominantly sexual mode of transmission Diagnosis 04/26/2019 11:11:00 AM [facility] [id number] Encounter for gynecological examination (general) (routine) without abnormal findings Encounter for gynecological examination (general) (routine) without abnormal findings Diagnosis 04/26/2019 11:11:[address] [facility] Z0001 Encounter for general adult medical exam ination with abnormal findings Encounter for general adult medical examination with abnormal findings Diagnosis 04/26/2019 11:11:00 AM [facility] R300 Dysuria Dysuria Diagnosis 04/05/2019 06:59:00 AM [facility] [id number] Other manager long term care (current) drug therapy [facility] drug therapy Diagnosis 04/05/2019 06:59:00 AM [facility] Z8481 Family history of carrier of genetic dis ease Family history of carrier of genetic disease Diagnosis 04/05/2019 06:59:00 AM [facility] Z6842 Body mass index (BMI) 45.0-49.9, adult B edouard mass index (BMI) 45.0-49.9, adult Diagnosis 03/26/2019 02:09:00 PM [facility] [id number] Encounter for initial prescription of co ntraceptive pills Encounter for initial prescription of contraceptive pills Diagnosis 03/26/2019 02:09:00 PM 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 N390 Urinary tract infection, site not specif ied Urinary tract infection, site not specified Diagnosis 03/26/2019 02:09:00 PM [facility] [id number] Unspecified sprain of left wrist, initia l encounter Unspecified sprain of left wrist, initial encounter Diagnosis 03/26/2019 02:09:00 PM [facility] Surgeries/Procedures Procedure Description Date Indications Data Source(s) Brief Emotional/Behav Assessment W/ Scoring Doc Per Standard Inst 03/26/2019 12:00:00 AM EST [facility] ([facility]) Results ID Date Data Source [id number] 04/26/2019 11:49:00 AM EST [facility] ([facility]) Name Value Range Interpretation Code Description Data Celeste rce(s) Supporting Document(s) Cytology report of Cervical or vaginal smear or scrapi ng Cyto stain.thin prep <pending> [facility] ([facility]) ID Date Data Source [id number] 04/30/2019 07:07:00 AM [facility] Name Value Range Interpretation Code Description Data Celeste rce(s) Supporting Document(s) SOURCE: Genital [facility] Chlamydia trachomatis rRNA [Presence] in Unspecified specimen by Probe and target amplification method Negative Negative [facility] Neisseria gonorrhoeae rRNA [Presence] in Unspecified specimen by Probe and target amplification method Negative Negative [facility] Trichomonas vaginalis DNA [Presence] in Unspecified specimen by Probe and target amplification method Negative Negative [facility] ID Date Data Source [id number] 04/05/2019 06:35:00 PM [facility] Name Value Range Interpretation Code Description Data Celeste rce(s) Supporting Document(s) [facility] Cholesterol [Mass/volume] in Serum or Plasma 189 MG/DL 131 - 200 [facility] Deprecated Triglyceride [Mass/volume] in Serum or Plasma 119 MG/DL 3 5 - 160 [facility] HDL 68 MG/DL 29 - 86 [facility] al Cholesterol in LDL/Cholesterol in HDL [Mass Ratio] in Serum or Plasma 108 mg/dL 65 - 175 [facility] Cholesterol.total/Cholesterol in HDL [Mass Ratio] in Serum o r Plasma 2.8 3.2 - 4.4 L [facility] LDL/HDL 1.59 1.47 - 3.22 [facility] ital CVE RISK CHOL/HDL LDL/HDLMEN: 1/2 AVERAGE 3.43 1.00 AVERAGE 4.97 3.55 2X AVERAGE 9.55 6.25 3X AVERAGE 23.99 7.99WOMEN: 1/2 AVERAGE 3.27 1.47 AVERAGE 4.44 3.22 2X AVERAGE 7.05 5.03 3X AVERAGE 11.04 6.14 ID Date Data Source [id number] 04/05/2019 06:23:00 PM [facility] Name Value Range Interpretation Code Description Data Celeste rce(s) Supporting Document(s) Thyrotropin [Units/volume] in Serum or Plasma by Detec tion limit <= 0.05 mIU/L 4.84 uIU/mL 0.47 - 5.01 [facility] ID Date Data Source [id number] 04/05/2019 06:10:00 PM [facility] Name Value Range Interpretation Code Description Data Celeste rce(s) Supporting Document(s) COMPREHENSIVE METABOLIC PANEL [facility] COMPREHENSIVE METABOLIC PANEL Sodium [Moles/volume] in Serum or Plasma 141 mEq/L 134 - 153 [facility] Potassium [Moles/volume] in Serum or Plasma 4.4 mEq/L 3.6 - 5.0 [facility] Chloride [Moles/volume] in Serum or Plasma 104 mEq/L 98 - 107 [facility] Carbon dioxide, total [Moles/volume] in Serum or Plasma 28 MEQ/L 22 - 30 [facility] Glucose [Mass/volume] in Serum or Plasma 94 MG/DL 65 - 110 [facility] BUN 14 MG/DL 7 - 21 [facility] Creatinine [Mass/volume] in Serum or Plasma 0.8 MG/DL 0.7 - 1.5 [facility] BUN/CREAT 18 8 - 27 [facility] Protein [Mass/volume] in Serum or Plasma 7.2 G/DL 6.3 - 8.2 [facility] Albumin [Mass/volume] in Serum or Plasma 4.3 G/DL 3.9 - 5.0 [facility] Globulin [Mass/volume] in Serum by calculation 2.9 GM/DL 2.4 - 3.2 [facility] A/G RATIO 1.5 0.8 - 2.0 [facility] Calcium [Mass/volume] in Serum or Plasma 9.5 MG/DL 8.4 - 10.2 [facility] Bilirubin.total [Mass/volume] in Serum or Plasma <0.7 MG/DL 0.2 - 1.3 [facility] Alkaline phosphatase [Enzymatic activity/volume] in Serum or Plasma 57 U/L 38 - 126 [facility] Aspartate aminotransferase [Enzymatic activity/volume] in Serum or Plasma 15 U/L 5 - 40 [facility] Alanine aminotransferase [Enzymatic activity/volume] in Seru m or Plasma 16 U/L 7 - 56 [facility] Anion gap 3 in Serum or Plasma 9.0 mmol/L 8.0 - 16.0 [facility] AGE 33 yrs [facility] NON-AA GFR >60 mL/min [facility] ital AFR AMER GFR >60 mL/min [facility] Ho spital Male GFR In terprentation 20-49 [...] >32 mL/min Normal ID Date Data Source [id number] 04/05/2019 06:08:00 PM EST [facility] Name Value Range Interpretation Code Description Data Celeste rce(s) Supporting Document(s) CBC W/AUTOMATED DIFF [facility] COMPLETE BLOOD COUNT Leukocytes [#/volume] in Blood by Automated count 6.7 10^3/uL 4.2 - 1 1.0 [facility] Erythrocytes [#/volume] in Blood by Automated count 4.20 10^6/uL 4. 20 - 5.40 [facility] Hemoglobin [Mass/volume] in Blood 12.4 g/dL 12.0 - 16.0 [facility] Hematocrit [Volume Fraction] of Blood by Automated count 39.2 % 3 7.0 - 47.0 [facility] Erythrocyte mean corpuscular volume [Entitic volume] by Auto mated count 93.3 fL 81.0 - 101 [facility] Erythrocyte mean corpuscular hemoglobin [Entitic mass] by Automated count 29.5 pg 27.0 - 34.0 [facility] Erythrocyte mean corpuscular hemoglobin concentration [Mass/volume] by Automated count 31.6 g/dL 31.0 - 36.0 [facility] Erythrocyte distribution width [Ratio] by Automated count 14.4 % 11.5 - 14.5 [facility] Platelets [#/volume] in Blood by Automated count 303 10^3/uL 150 - 45 0 [facility] Platelet mean volume [Entitic volume] in Blood by Automated count 9.8 fL 7.4 - 10.4 [facility] Neutrophils/100 leukocytes in Blood by Automated count 59.9 % 37. 0 - 80.0 [facility] Lymphocytes/100 leukocytes in Blood by Manual count 28.7 % 25.0 - 40.0 [facility] Monocytes/100 leukocytes in Blood by Automated count 7.6 % 3.0 - 8.0 [facility] Eosinophils/100 leukocytes in Blood by Automated count 3.3 % 0.0 - 7.0 [facility] Basophils/100 leukocytes in Blood by Automated count 0.4 % 0.0 - 2.5 [facility] %IG 0.1 % 0.0 - 0.0 H [facility] %NRBC 0.0 % 0.0 - 0.0 [facility] al Neutrophils [#/volume] in Blood by Automated count 4.02 10^3/uL 2.00 - 6.90 [facility] Lymphocytes [#/volume] in Blood by Automated count 1.93 10^3/uL 0.60 - 3.40 [facility] Monocytes [#/volume] in Blood by Automated count 0.51 10^3/uL 0.00 - 0.90 [facility] Eosinophils [#/volume] in Blood by Automated count 0.22 10^3/uL 0.00 - 0.70 [facility] Basophils [#/volume] in Blood by Automated count 0.03 10^3/uL 0.00 - 0.20 [facility] #IG 0.01 10^3/uL 0.00 - 0.[address] [facility] H ospital #NRBC 0.00 10^3/uL 0.00 - 0.00 [facility] ospital MANUAL DIFF NOT INDICATED [facility] RBC MORPH NOT INDICATED [facility] spital ID Date Data Source [id number] 04/05/2019 06:06:00 PM EST [facility] Name Value Range Interpretation Code Description Data Celeste rce(s) Supporting Document(s) Hemoglobin A1c/Hemoglobin.total in Blood 5.4 % 4.4 - 6.1 [facility] {A1]{HB] ID Date Data Source [id number] 04/05/2019 07:10:00 AM EST [facility] ([facility]) Name Value Range Interpretation Code Description Data Celeste rce(s) Supporting Document(s) Thyrotropin [Units/volume] in Serum or Plasma 4.84 uIU/mL 0.47-5.01 [facility] Is patient fasting? N ID Date Data Source [id number] 04/05/2019 07:10:00 AM EST [facility] ([facility]) Name Value Range Interpretation Code Description Data Celeste rce(s) Supporting Document(s) Cve Panel (SEE NOTE) [facility] ([facility]) Is patient fasting? N Cholesterol 189 mg/dL 131-200 [facility] ([facility]) Is patient fasting? N Triglycerides 119 mg/dL 35-160 [facility] ([facility]) Is patient fasting? N Risk Factor 2.8 3.2-4.4 Below low normal [facility] ([facility]) Is patient fasting? N LDL 108 mg/dL 65-175 [facility] ([facility]) Is patient fasting? N HDL 68 mg/dL 29-86 [facility] ([facility]) Is patient fasting? N LDL/HDL 1.59 1.47-3.22 [facility] ([facility]) Is patient fasting? N ID Date Data Source [id number] 04/05/2019 07:10:00 AM EST [facility] ([facility]) Name Value Range Interpretation Code Description Data Celeste rce(s) Supporting Document(s) Hemoglobin A1c/Hemoglobin.total in Blood 5.4 % 4.4-6.1 [facility] ([facility]) Is patient fasting? N ID Date Data Source [id number] 04/05/2019 07:10:00 AM EST [facility] ([facility]) Name Value Range Interpretation Code Description Data Celeste rce(s) Supporting Document(s) Comprehensive Metabo (SEE NOTE) [facility] ( [facility]) Is patient fasting? N Sodium 141 meq/L 134-153 [facility] ([facility]) Is patient fasting? N Potassium 4.4 meq/L 3.6-5.0 [facility] ([facility]) Is patient fasting? N Chloride 104 meq/L 98-107 [facility] Is patient fasting? N Glucose 94 mg/dL 65-110 [facility] ([facility]) Is patient fasting? N Co2 28 meq/L 22-30 [facility] ([facility]) Is patient fasting? N BUN 14 mg/dL 7-21 [facility] Is patient fasting? N Creatinine 0.8 mg/dL 0.7-1.5 [facility] ([facility]) Is patient fasting? N BUN/Creat 18 8-27 [facility] ([facility]) Is patient fasting? N Total Protein 7.2 g/dL 6.3-8.2 [facility] ([facility]) Is patient fasting? N Globulin 2.9 GM/DL 2.4-3.2 [facility] Is patient fasting? N A/G Ratio 1.5 0.8-2.0 [facility] ([facility]) Is patient fasting? N Albumin 4.3 g/dL 3.9-5.0 [facility] ([facility]) Is patient fasting? N Calcium 9.5 mg/dL 8.4-10.2 [facility] ([facility]) Is patient fasting? N Total Bili <0.7 mg/dL 0.2-1.3 [facility] Is patient fasting? N SGPT/Alt 16 U/L 7-56 [facility] ([facility]) Is patient fasting? N Alkaline Phos 57 U/L 38-126 [facility] ([facility]) Is patient fasting? N Sgot/Ast 15 U/L 5-40 [facility] ([facility]) Is patient fasting? N Age 33 yrs [facility] ([facility]) Is patient fasting? N Anion Gap 9.0 mmol/L 8.0-16.0 [facility] ([facility]) Is patient fasting? N Non-Aa GFR >60 mL/min [facility] ([facility]) Is patient fasting? N Afr Amer GFR >60 mL/min [facility] Is patient fasting? N ID Date Data Source [id number] 04/05/2019 07:10:00 AM EST [facility] ([facility]) Name Value Range Interpretation Code Description Data Celeste rce(s) Supporting Document(s) WBC 6.7 10^3/uL 4.2-11.0 [facility] ([facility]) Is patient fasting? N CBC W/Automated Diff (SEE NOTE) [facility] ( [facility]) Is patient fasting? N Hemoglobin 12.4 g/dL 12.0-16.0 [facility] ([facility]) Is patient fasting? N RBC 4.20 10^6/uL 4.20-5.40 [facility] ([facility]) Is patient fasting? N MCV 93.3 fL 81.0-101 [facility] ([facility]) Is patient fasting? N MCH 29.5 pg 27.0-34.0 [facility] ([facility]) Is patient fasting? N Hematocrit 39.2 % 37.0-47.0 [facility] ([facility]) Is patient fasting? N MCHC 31.6 g/dL 31.0-36.0 [facility] ([facility]) Is patient fasting? N RDW 14.4 % 11.5-14.5 [facility] ([facility]) Is patient fasting? N Neut 59.9 % 37.0-80.0 [facility] ([facility]) Is patient fasting? N MPV 9.8 fL 7.4-10.4 [facility] ([facility]) Is patient fasting? N Platelets 303 10^3/uL 150-450 [facility] ([facility]) Is patient fasting? N Lymph 28.7 % 25.0-40.0 [facility] ([facility]) Is patient fasting? N [place] 7.6 % 3.0-8.0 [facility] ([facility]) Is patient fasting? N Eos 3.3 % 0.0-7.0 [facility] ([facility]) Is patient fasting? N %Ig 0.1 % 0.0-0.0 Above high normal [facility] ([facility]) Is patient fasting? N Baso 0.4 % 0.0-2.5 [facility] ([facility]) Is patient fasting? N %NRBC 0.0 % 0.0-0.0 [facility] ([facility]) Is patient fasting? N #Neut 4.02 10^3/uL 2.00-6.90 [facility] ([facility]) Is patient fasting? N #[place] 0.51 10^3/uL 0.00-0.90 [facility] ([facility]) Is patient fasting? N #Eos 0.22 10^3/uL 0.00-0.70 [facility] ([facility]) Is patient fasting? N #Lymph 1.93 10^3/uL 0.60-3.40 [facility] ([facility]) Is patient fasting? N #Baso 0.03 10^3/uL 0.00-0.20 [facility] ([facility]) Is patient fasting? N #Ig 0.01 10^3/uL 0.00-0.10 [facility] ([facility]) Is patient fasting? N #NRBC 0.00 10^3/uL 0.00-0.00 [facility] ([facility]) Is patient fasting? N RBC Morph NOT INDICATED [facility] ([facility]) Is patient fasting? N Manual Diff NOT INDICATED [facility] ([facility]) Is patient fasting? N ID Date Data Source [id number] 03/28/2019 11:15:00 AM EST [facility] [address] [place] [id number] PHONE: [phone] FAX: [phone] Name .................. : BAL Beyer Acct Number.................. : [id number] ROOM. ................. : Number ................... : [id number] Stay type ............. : O/P Discharge Date......... ... : 03/27/19 Admit Date ......... : 03/27/19 Admit Phys .................... : REED MCDANIELS Date of ....... : 1985 Family Phys ................... : REED MCDANIELS Phone .................. : [phone] Age ................................ : 33 Film# .................. .:[id number] Sex ................................. : F Unsigned transcriptions are preliminary reports and do not represent a medical or legal document [place] [id number] COMPLETE:03/27/19 12:25 [id number] (REASON FOR PROCESS PAIN LEFT WRIST SERIES: FINDINGS: No evidence for fractures, subluxation or adjacent soft tissue swelling is noted. IMPRESSION: Unremarkable left wrist. Electronically Reviewed and Signed By Abdiel Pyle MD , 03/28/19 11:15, [facility] Transcribe Initials: ALL , Transcribe Date: 03/27/19 22:06, Dictation Date: Copy for: 710 MED REC Page 1 of 1 Name Value Range Interpretation Code Description Data Celeste rce(s) Supporting Document(s) ID Date Data Source [id number] 03/26/2019 03:38:00 PM EST [facility] ([facility]) Name Value Range Interpretation Code Description Data Celeste rce(s) Supporting Document(s) Color of Urine yellow [facility] Appearance of Urine clear [facility] ([facility]) Spec [place] 1.020 [facility] ([facility]) pH of Urine by Test strip 5 MEDE NT ([facility]) Leukocytes + [facility] ([facility]) Inhouse Glucose normal [facility] ([facility]) Protein [Presence] in Urine by Test strip ++ [facility] ([facility]) Nitrate [Presence] in Urine negative [facility] ([facility]) Ketones [Presence] in Urine by Test strip + [facility] ([facility]) Bilirubin.total [Presence] in Urine by Test strip negative [facility] ([facility]) Urobilinogen normal [facility] ([facility]) Blood type and Indirect antibody screen panel - Blood 50 [facility] ([facility]) ID Date Data Source [id number] 03/28/2019 10:42:00 AM [facility] Does the specimen need to be recollected ?: YREASON REJECTED:: TOO OLD, SPECIMEN CUP EMPTYTEST(S) ORDERED:: URINE CULTURE Name Value Range Interpretation Code Description Data Celeste rce(s) Supporting Document(s) Laboratory URINE CULTURE [facility] Laboratory studies (set) TOO OLD, SPECIMEN CUP EMPTY [facility] One or more of the tests that youordered cannot be performed.Please recollect, reorder and resubmit. ID Date Data Source [id number] 03/26/2019 03:34:00 PM EST [facility] ([facility]) Name Value Range Interpretation Code Description Data Celeste rce(s) Supporting Document(s) Laboratory URINE CULTURE [facility] ([facility]) Laboratory studies (set) TOO OLD, SPECIME <SEE NOTE> [facility] ([facility]) TOO OLD, SPECIMEN CUP EMPTY One or more of the tests that you ordered cannot be performed. Please recollect, reorder and resubmit. ID Date Data Source [id number] 03/26/2019 11:30:00 AM EST [facility] ([facility]) Name Value Range Interpretation Code Description Data Celeste rce(s) Supporting Document(s) Lab - Specimen Rejec (SEE NOTE) [facility] ( [facility]) Specimen Integrity/Specimen Recollection The patient sample needs to be resubmitted for the following reason: Test(s) Ordered URINE C/S [facility] ([facility]) Rejection Reason QNS [facility] ([facility]) { One or more of the tests you ordered cannot be performed. { Please recollect, reorder, and resubmit if needed. ID Date Data Source [id number] 03/28/2019 12:15:00 PM [facility] Name Value Range Interpretation Code Description Data Celeste rce(s) Supporting Document(s) LAB - SPECIMEN REJECTION [facility] Specimen Integrity/Specimen Recollection The patient sample needs to be resubmitted for the following reason: Test(s) Ordered URINE C/S [facility] Rejection Reason QNS [facility] { One or more of the tests you ordered cannot be performed.{ Please recollect, reorder, and resubmit if needed. Procedure Vital Signs ID Date Data Source [id number] Name Value Range Interpretation Code Description Data Source(s) Body surface area 2.24 m2 2.24 m2 [facility] Body mass index (BMI) [Ratio] 44.8 kg/m2 44.8 k g/m2 [facility] ([facility]) Body height 65 [in_i] 65 [in_i] [facility] ([facility]) 5'5" Body weight 122.018 kg 122.018 kg [facility] ([facility]) Body weight 269.00 [lb_av] 269.00 [lb_av] [facility] ([facility]) Oxygen saturation in Arterial blood by Pulse oximetry 98 % 98 % [facility] ([facility]) Respiratory rate 18 /min 18 /min [facility] ( [facility]) Body temperature 98.4 [degF] 98.4 [degF] [facility] ([facility]) Heart rate 92 /min 92 /min [facility] ([facility]) Diastolic blood pressure 64 mm[Hg] 64 mm[Hg] [facility] ([facility]) Systolic blood pressure 104 mm[Hg] 104 mm[Hg] [facility] Body surface area 2.26 m2 2.26 m2 [facility] ([facility]) Body mass index (BMI) [Ratio] 45.8 kg/m2 45.8 k g/m2 [facility] ([facility]) Body height 65 [in_i] 65 [in_i] [facility] ([facility]) 5'5" Body weight 124.740 kg 124.740 kg [facility] ([facility]) Body weight 275.00 [lb_av] 275.00 [lb_av] [facility] ([facility]) Oxygen saturation in Arterial blood by Pulse oximetry 99 % 99 % [facility] ([facility]) Respiratory rate 18 /min 18 /min [facility] ( [facility]) Body temperature 97.9 [degF] 97.9 [degF] [facility] ([facility]) Heart rate 82 /min 82 /min [facility] ([facility]) Diastolic blood pressure 80 mm[Hg] 80 mm[Hg] [facility] ([facility]) Systolic blood pressure 124 mm[Hg] 124 mm[Hg] M [facility] ([facility])
[2020-04-29 18:25] LABS: BASO % 0.5 % (0.0-1.0); EOS # 0.2 10^3/uL (0.0-0.5); HEMATOCRIT 40.4 % (36.0-47.0); HEMOGLOBIN 12.9 g/dl (12.0-15.5); LYMPH # 2.2 10^3/uL (1.5-5.0); LYMPH % 29.5 % (24.0-44.0); MEAN CORPUSCULAR HEMOGLOBIN 29.2 pg (27.0-33.0); MEAN CORPUSCULAR HGB CONC 31.9 g/dl (32.0-36.5); MEAN CORPUSCULAR VOLUME 91.4 fl (80.0-96.0); MONO # 0.7 10^3/uL (0.0-0.8); MONO % 9.1 % (2.0-8.0); NEUTROPHILS # 4.4 10^3/uL (1.5-8.5); NEUTROPHILS % 58.6 % (36.0-66.0); PLATELET COUNT, AUTOMATED 320 10^3/uL (150-450); RED BLOOD COUNT 4.42 10^6/uL (4.00-5.40); WHITE BLOOD COUNT 7.6 10^3/uL (4.0-10.0)
--- NOTE | 2020-04-29 19:03 | REP ---
INDICATION: CVA. COMPARISON: None. TECHNIQUE: AP portable seated chest FINDINGS: The lung gleason are well inflated. CP angles are sharply defined without effusion. There is no infiltrate, atelectasis or mass. The heart, mediastinal and hilar contours are grossly unremarkable. The aorta and airway are intact. There is no vascular redistribution or edema. Visualized bones are without acute finding. IMPRESSION: No acute cardiopulmonary change. <Electronically signed by Gennaro Verduzco > 04/29/20 [id number]
[2020-04-29] MEDS ORDERED: PROHANCE 279.3MG/ML 15ML VIAL As Ordered ONE (20:26)
[2020-04-29] MEDS ORDERED: PROHANCE 279.3MG/ML 5ML VIAL As Ordered ONE (20:26)
--- NOTE | 2020-04-29 21:12 | REPVR ---
PROCEDURE INFORMATION: Exam: MR Head Without and With Contrast Exam date and time: 04/29/2020 8:46 PM Age: 34 years old Clinical indication: Patient HX: Left third cn palsy, mass vs infarct on CT TECHNIQUE: Imaging protocol: MR of the head without and with intravenous contrast. Contrast material: PROHANCE; Contrast volume: 20 ml; Contrast route: INTRAVENOUS (IV); COMPARISON: CT Head without contrast 04/29/2020 5:04 PM FINDINGS: Ventricles demonstrate normal size and configuration. Major vascular flow voids at the skull base are preserved. No extra-axial fluid collection. Low-lying cerebellar tonsils measuring up to 1.2 cm below the foramen magnum. There is peg shaped morphology. There are multiple foci of abnormal white matter signal involving the subcortical white matter, periventricular/pericallosal white matter, corpus callosum, right basal ganglia and right cerebellum. There is associated multifocal T2 shine through. Multiple lesions demonstrate enhancement. Visualized paranasal sinuses and mastoid air cells are clear. IMPRESSION: 1. There are multifocal enhancing white matter lesions as above, suspect demyelination with multiple foci of active demyelination. 2. Subacute ischemic infarcts or neoplasia considered less likely. 3. Positive for Chiari 1 malformation. Electronically signed by: Leodan Arevalo On 04/29/2020 21:13:21 PM
--- NOTE | 2020-04-29 21:14 | REPVR ---
PROCEDURE INFORMATION: Exam: MR Angiogram Head Without Contrast, Arteries Exam date and time: 04/29/2020 8:46 PM Age: 34 years old Clinical indication: Condition or disease; Patient HX: Left third cn palsy, mass vs infarct on CT TECHNIQUE: Imaging protocol: MR angiogram head without contrast. Exam focused on the arteries. COMPARISON: CT Head without contrast 04/29/2020 5:04 PM FINDINGS: ANTERIOR CIRCULATION: Right internal carotid artery: Intracranial segment is patent with no significant stenosis. No aneurysm. Right middle cerebral artery: No occlusion or significant stenosis. No aneurysm. Right anterior cerebral artery: No occlusion or significant stenosis. No aneurysm. Left internal carotid artery: Intracranial segment is patent with no significant stenosis. No aneurysm. Left middle cerebral artery: No occlusion or significant stenosis. No aneurysm. Left anterior cerebral artery: No occlusion or significant stenosis. No aneurysm. POSTERIOR CIRCULATION: Right vertebral artery: No occlusion or significant stenosis. No aneurysm. Left vertebral artery: No occlusion or significant stenosis. No aneurysm. Basilar artery: No occlusion or significant stenosis. No aneurysm. Right posterior cerebral artery: No occlusion or significant stenosis. No aneurysm. Left posterior cerebral artery: No occlusion or significant stenosis. No aneurysm. IMPRESSION: No stenosis or occlusion. Electronically signed by: Leodan Arevalo On 04/29/2020 21:15:06 PM
[2020-04-29] MEDS ORDERED: methylPREDNISolone 1,000 MG, VIAL MATE ADAPTER 1 EACH in D5W 250 ML IV ONE (21:55)
[2020-04-29] MEDS ORDERED: C 50TAB PO (22:13)
[2020-04-29] MEDS ORDERED: IBUP-1720 PO (22:13)
[2020-04-29] MEDS ORDERED: TRI-TAB PO (22:13)
[2020-04-29] MEDS ORDERED: FISH1000 PO (22:13)
--- NOTE | 2020-04-29 22:49 | HPEPDOC ---
[facility] Medical History & Physical Date of Admission Apr 29, 2020 Date of Service: Apr 29, 2020 Attending Physician: VICKY MILTON MD History and Physical CHIEF COMPLAINT: Headache, diplopia HISTORY OF PRESENT ILLNESS: Patient is a 34-year-old female with a limited medical history consisting of R- eye lensectomy and resulting migraines, who presented to the emergency department on 04/29/20 after waking up with diplopia and reported "right eye misalignment". Reported, intermittent nausea without emesis. Denies any other symptoms at that time including headache, numbness, tingling or weakness. Patient states that she immediately contacted her clinical operations specialist at [facility]. Patient was seen in the office and sent for ESR and CRP with close follow-up tomorrow. However, when patient returned home following her lab draw, she began to experience a left-sided, anterior headache. She shares that this headache was different than her typical migraines. She can contact the office who recommended she present to the emergency department further evaluation and management. On presentation to emergency department, patient was found to be afebrile, pulse, respirations, blood pressure and SPO2 within normal limits. CBC within normal limits. No significant findings on BMP. CRP and ESR elevated at 0.53 and 29 respectively. Physical examination revealed an obvious right-sided palsy. Patient was sent for CT imaging of her head which did note a basal ganglia hypodensity. Subsequent brain MRA was negative, brain MRI did show multifocal enhancing white matter lesions, suspicious for demyelinating disease. Chiari malformation also noted. Numerous lab studies were ordered from the emergency department including vitamin D, Ru, Lyme, DANICA and homocysteine, which all remain pending. A goal dose of methylprednisolone was given. Hospitalist team was contacted to admit the patient for further evaluation and management. PAST MEDICAL HISTORY: R-sided ocular staph infection s/p trauma, 2000 Migraines PAST SURGICAL HISTORY: Numerous R-eye surgeries s/p trauma, including lensectomy Cholecystectomy SOCIAL HISTORY: Marital status: Single Resides in: Own home with mother and daughter Children: 1 daughter Tobacco use: Pt reports being an infrequent smoker, only when stressed. Reports 3 cigarettes this last week. Averages <10 cigarettes per week. ETOH: Reports being an infrequent ETOH user. Illicit drug use: Denies illicit IV drugs including marijuana FAMILY HISTORY: Father: Alive, hypertension Mother: Alive, hyperlipidemia Siblings: One brother, alive, hemophilia unknown type Children: One daughter, alive, speech delay Patient reports a paternal family history of prostate cancer and a maternal family history of breast cancer. ALLERGIES: Please see below. REVIEW OF SYSTEMS: CONSTITUTIONAL: Patient denies any recent fever, chills, changes in weight or appetite. No night sweats or generalized fatigue. HEENT: As mentioned in HPI, patient awoke this morning with diplopia, worse than her usual baseline status post right-sided lensectomy. Ports improvement with covering of the right eye. Denies any left eye flashes or floaters. No reduction in her right eye vision. CARDIOVASCULAR: Has any chest pain or pressure, inappropriate tachycardia or palpitations RESPIRATORY: Denies any shortness of breath, cough or wheeze GASTROINTESTINAL: Denies any emesis, bellyaches or belly pains, constipation or diarrhea GENITOURINARY: Difficulty urinating SKIN: Denies any bruising or bleeding, no rash or lesions MUSCULOSKELETAL: Denies any joint last muscle aches or pains NEUROLOGICAL: Ports diplopia as listed above. Denies any difficulty speaking, vertigo or imbalance. PSYCHIATRIC: She admits to being slightly anxious HOME MEDICATIONS: Please see below. PHYSICAL EXAMINATION: VITAL SIGNS: Please see below GENERAL APPEARANCE: Patient was interviewed and examined in the emergency department. She was found to be resting comfortably in bed using her phone. Patient is in excellent historian, well versed in her previous medical care. Cooperative with examination. Does not appear to be in any acute distress. HEENT: Patient's head is normocephalic without any signs of trauma. No bruising or lesions. Some right-sided ptosis . Patient is status post right-sided lensectomy and therefore does not exhibit any mydriasis or myosis. Right-sided Ophthalmoplegia noted. Right-sided exotropia with horizontal deviation to the left noted. Left-sided pupil round and reactive to light. CARDIOVASCULAR: Regular rate and rhythm, without any murmurs LUNGS: Clear to auscultation bilaterally ABDOMEN: Obese, soft, nontender, nondistended, bowel sounds present throughout, no guarding or rigidity MUSCULOSKELETAL: Strength 5 out of 5 in upper and lower extremities EXTREMITIES: She is able to move all extremities equally bilaterally. Radial and posterior tibial pulses 2+ bilaterally, lower extremity edema or swelling. No calf tenderness. NEUROLOGICAL: As mentioned in HEENT, otherwise cranial nerves II, IV through XII appear intact, no dysphagia or dysarthria, no facial droop. Distal sensation is intact as well as motor function. PSYCHIATRIC: Mood and affect are appropriate LABORATORY DATA: See below. IMAGING: Head CT (04/29/20): Subtle hypodensity measuring 15 x 7 mm in the right basal ganglia which raises the question of subacute infarct. No associated hemorrhage or mass effect. MRI without and with contrast and MRA recommended. Chest x-ray (04/29/20): No acute cardiopulmonary change. Brain MRA (04/29/20): No stenosis or occlusion. MRI brain without followed by with (04/29/20): There are multifocal enhancing white matter lesions as above, suspect demyelinating with multiple foci of act blanquita demyelination. Subacute ischemic infarcts or neoplasia considered less likely. Positive for Chiari I malformation. MICROBIOLOGY: Please see below. ASSESSMENT: Patient is a 34-year-old female with limited past medical history consisting of right-sided lensectomy was subsequent migraine headaches and to have a third nerve palsy with evidence of demyelination on MRI. Patient being admitted to the hospital and treated with high-dose Solu-Medrol total of 5 days. As has been discussed with neurology who recommended lumbar puncture in the morning. 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 -Case discussed with neurology, recommend LP in am for oligoclonal bands and 5 days of solumedrol, consult as needed -NPO for IR procedure in am. -DANICA, ANCA, Anti-ds DNA, Lyme, RU-level, Vit D, Homocysteine remain pending. -Q4H Neurochecks, fall precautions #Chiari I malformation -Low-lying cerebellar tonsils measuring up to 1.2 cm below the foramen magnum, peg shaped morphology. -Noted incidentally on MRI -Outpatient follow-up and monitoring #Obesity -BMI of 44, complicating care -Recommend diet and healthy lifestyle modification -A1c, lipids -Outpatient follow-up DVT PROPHYLAXIS: Lovenox CODE STATUS: FULL CODE DISPOSITION: Anticipate >2 night stay, pending clinical improvement, LP in am Vital Signs Vital Signs Date Time Temp Pulse Resp B/P (MAP) Pulse Ox O2 Delivery O2 Flow Rate FiO2 04/29/20 17:39 79 100 04/29/20 17:31 04/29/20 17:24 97.9 20 Laboratory Data Labs 24H Laboratory Tests 2 04/29/20 17:59: Immature Granulocyte % (Auto) 0.3, Neutrophils (%) (Auto) 58.6, Lymphocytes (%) (Auto) 29.5, Monocytes (%) (Auto) 9.1H, Eosinophils (%) (Auto) 2.0, Basophils (%) (Auto) 0.5, Neutrophils # (Auto) 4.4, Lymphocytes # (Auto) 2.2, Monocytes # (Auto) 0.7, Eosinophils # (Auto) 0.2, Basophils # (Auto) 0.0, Nucleated Red Blood Cells % (auto) 0.0 04/29/20 18:12: POC Glucose (Misc Panel) 92, POC Sodium (Misc Panel) 142, POC Potassium (Misc Panel) 3.7, POC Chloride (Misc Panel) 104, POC Total CO2 (Misc Panel) 28.0H, POC Blood Urea Nitrogen (Misc Panel 10, POC Ionized Calcium (Misc Panel) 4.8, POC Creatinine (Misc Panel) 1.0, POC Hematocrit (Misc Panel) 40.0 04/29/20 18:15: POC Beta HCG, Quantitative < 5.0 04/29/20 22:03: 04/29/20 22:15: CBC/BMP Laboratory Tests 04/29/20 17:59 Home Medications Scheduled Ascorbic Acid (Vitamin C) 500 Mg Tablet, 500 MG PO DAILY Norgestimate-Ethinyl Estradiol (Tri-Sprintec Tablet) 1 Each Tablet, 1 TAB PO DAILY [place]-3 Fatty Acids/Fish Oil (Fish Oil 1,000 mg Capsule) 1 Each Capsule, 1,000 MG PO DAILY Scheduled PRN Ibuprofen (Ibuprofen) 200 Mg Tablet, 400 MG PO Q6H PRN for HEADACHE OR PAIN Allergies Coded Allergies: No Known Allergies (Unverified , 04/29/20) A-FIB/CHADSVASC A-FIB History Current/History of A-Fib/PAF?: No Current PO Anticoag Therapy: No GME ATTESTATION GME ATTESTATION My faculty preceptor for this patient encounter was physically present during the encounter and was fully available. All aspects of the patient interview, examination, medical decision making process, and medical care plan development were reviewed and approved by the faculty preceptor. The faculty preceptor is aware and concurs with the plan as stated in the body of this note and will attest to such by his/her cosignature. ATTENDING NOTE TIME OF SERVICE 1050PM is a 34 yr old w a hx of class 3 obesity, Sydni malformation, ocular migraines and right eye lens extraction who presented w c/o acute onset of her right eye deviation; MRI of the brain showed findings concerning for demyelinating disease. 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 Plan: admit to medical floor / solumedrol 1g daily for 5 days / will keep her NPO and ask the day time team to consult IR for LP / because of her complicated ocular history we will ask the day time team to consult Neurology to see her in the morning rest per 's H&P ELIZABETH DELA CRUZ DO Apr 29, 2020 22:49 VICKY MILTON MD Apr 30, 2020 02:45
[2020-04-29 23:08] LABS: RSV AMPLIFICATION NEGATIVE (NEGATIVE)
--- OUTSIDE RECORDS SUMMARY | 2020-04-29 23:31 | CCD ---
Author Author [facility] Organization [facility] Address Unknown Phone Unavailable Care Team Providers Care Payroll Analyst Name Role Phone Natty Rabago ANP-BC Unavailable Unavailable Natty Rabagon ANP-BC Unavailable Unavailable ReedNatty Abril ANP-BC Unavailable Unavailable ReedNatty Abril ANP-BC Unavailable Unavailable Natty Rabago Abril ANP-BC Unavailable Unavailable Natty Rabago Abril ANP-BC Unavailable Unavailable Natty Rabagon ANP-BC Unavailable Unavailable Natty Rabago Abril ANP-BC Unavailable Unavailable ReedNatty Abril ANP-BC Unavailable Unavailable Natty Rabagon ANP-BC Unavailable Unavailable Natty Rabago Abril ANP-BC Unavailable Unavailable Natty Rabago Abril ANP-BC Unavailable Unavailable ReedNatty Abril ANP-BC Unavailable Unavailable ReedNatty Abril ANP-BC Unavailable Unavailable ReedNatty Abril ANP-BC Unavailable Unavailable ReedNatty Abril ANP-BC Unavailable Unavailable Natty Rabago Abril ANP-BC Unavailable Unavailable Natty Rabago Abril ANP-BC Unavailable Unavailable ReedNatty Abril ANP-BC [...] Natty Abril ANP-BC Unavailable Unavailable Reed, Natty Abrli ANP-BC Unavailable Unavailable Reed, Natty Abril ANP-BC [...] Abril ANP-BC Unavailable Unavailable Reed, Natty Abril PENDLETON-BC Unavailable Unavailable Re-disclosure Warning The records that [...] is protected by Article 27-F of the [facility] Public Health law. If you continue you may have access to information: Regarding HIV / AIDS; Provided by facilities licensed or operated by the [facility] Office of Mental Health; or Provided by the [facility] Office for People With Developmental Disabilities. If such information is present, then the following [facility] mandated warning applies: This information has been [...] law may result in a fine or longterm sentence or both. A general authorization for the release of medical or other information is NOT sufficient authorization for further disc losure. Allergies and Adverse Reactions Type Description Substance Reaction Status Data Source(s ) No Known Drug Allergies No Known Drug Allergies [facility] No Known Environmental Allergies No Known Environmental Al lergies [facility] No Known Food Allergies No Known Food Allergies [facility] Drug Allergy NKDA NKDA [facility] ([facility]) Family History Family Member Name Family Member Gender Family Member Status Date o f Status Description Data Source(s) Unknown Male Problem [facility] ([facility]) Encounters Encounter Providers Location Date Indications Data Source(s ) Outpatient Attender: Abril LANEBCConsultant: Abril PENDLETON-BC 04/26/2019 11:11:00 AM EST - 04/26/2019 11:11:00 AM EST [facility] Outpatient Attender: Abril [facility] 04/07 10:20:00 AM EST [facility] ([facility]) Outpatient Attender: Abril EVANSonsultant: Abril FITZGERALD 04/05/2019 06:59:00 AM EST - 04/05/2019 06:59:00 AM EST [facility] Outpatient Attender: Abril EVANSonsultant: Abril FITZGERALD 03/27/2019 12:21:00 PM EST - 03/27/2019 01:21:00 PM EST [facility] Outpatient Attender: Abril FITZGERALD 03/26/2019 03:34:00 PM EST [facility] Outpatient Attender: Abril FITZGERALD 03/07 02:09:00 PM EST - 03/26/2019 02:09:00 PM EST [facility] Outpatient Attender: Abril [facility]ALD [facility] 03/07 01:20:00 PM EST [facility] ([facility]) Medications Medication Brand Name Start Date Product Form Dose Route Admi nistrative Instructions Pharmacy Instructions Status Indications Reaction Description Data Source(s) No Active Medications 03/26/2019 12:00:00 AM EST completed [facility] ([facility]) Tri-Sprintec Tri-Sprintec 03/26/2019 12:00:00 AM EST ORAL active [facility] ([facility]) Sulfamethoxazole 800 MG / Trimethoprim 160 MG Oral Tab let Sulfamethoxazole/Trimethoprim DS 03/26/2019 12:00:00 AM EST ORAL completed [facility] ([facility]) Insurance Providers Payer name Policy type / Coverage type Policy ID Covered republican ID Covered republican's relationship to la Policy La Plan Information [facility] COMMUNITY PLAN [facility] [id number] SP [id number] [facility] COMMUNITY PLAN [facility] [id number] SP [id number] [facility] COMMUNTY PLAN [id number] [facility] COMMUNITY PLAN XIX [id number] 18 [id number] [facility] AMERICHOICE XIX -HMO [id number] 18 [id number] Managed Care - [facility] Community Plan P [id number] S [id number] Medicaid S [id number] S [id number] Managed Care - Community Plan [facility] P [id number] S [id number] Un Community Plan Medicaid [id number] Self [id number] UN COMMUNITY PLAN [id number] 18 [id number] [employer] COMMUNITY PLAN XIX -I/P [id number] 18 [id number] [facility] I [id number] Self [id number] [place]ICAID [id number] SP [id number] SELF PAY UNAVAILABLE SP UNAVAILA BLE BCBS [place] PPO [id number] SP [id number] Problems, Conditions, and Diagnoses Code Display Name Description Problem Type Effective Dates Data Source(s) Z6841 Body mass index (BMI) 40.0-44.9, adult B edouard mass index (BMI) 40.0-44.9, adult Diagnosis 04/26/2019 11:11:00 AM [facility] E669 Obesity, unspecified Obesity, unspecified Diagnosis 04/26/2019 11:11:00 AM [facility] Z113 Encounter for screening for infections with a predominantly sexual mode of transmission Encounter for screening for infections w ith a predominantly sexual mode of transmission Diagnosis 04/26/2019 11:11:00 AM [facility] [id number] Encounter for gynecological examination (general) (routine) without abnormal findings Encounter for gynecological examination (general) (routine) without abnormal findings Diagnosis 04/26/2019 11:11:00 AM [facility] Z0001 Encounter for general adult medical exam ination with abnormal findings Encounter for general adult medical examination with abnormal findings Diagnosis 04/26/2019 11:11:00 AM [facility] R300 Dysuria Dysuria Diagnosis 04/05/2019 06:59:[address] [facility] [id number] Other superintendent terminal (current) drug therapy O ther superintendent terminal (current) drug therapy Diagnosis 04/05/2019 06:59:00 AM [facility] Z8481 Family history of carrier of genetic dis ease Family history of carrier of genetic disease Diagnosis 04/05/2019 06:59:00 AM [facility] Z6842 Body mass index (BMI) 45.0-49.9, adult B edouard mass index (BMI) 45.0-49.9, adult Diagnosis 03/26/2019 02:09:00 PM [facility] [id number] Encounter for initial prescription of co ntraceptive pills Encounter for initial prescription of contraceptive pills Diagnosis 03/26/2019 02:09:00 PM [facility] 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, right eye, 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, right eye, normal vision left eye Diagnosis 020 02:09:00 PM [facility] N390 Urinary tract infection, site not specif ied Urinary tract infection, site not specified Diagnosis 03/26/2019 02:09:00 PM [facility] [id number] Unspecified sprain of left wrist, initia l encounter Unspecified sprain of left wrist, initial encounter Diagnosis 03/26/2019 02:09:00 PM [facility] Surgeries/Procedures Procedure Description Date Indications Data Source(s) Brief Emotional/Behav Assessment W/ Scoring Doc Per Standard Inst 03/26/2019 12:00:00 AM EST [facility] ([facility]) Results ID Date Data Source [id number] 04/26/2019 11:49:00 AM EST [facility] ([facility]) Name Value Range Interpretation Code Description Data Celeste rce(s) Supporting Document(s) Cytology report of Cervical or vaginal smear or scrapi ng Cyto stain.thin prep <pending> [facility] ([facility]) ID Date Data Source [id number] 04/30/2019 07:07:00 AM [facility] Name Value Range Interpretation Code Description Data Celeste rce(s) Supporting Document(s) SOURCE: Genital [facility] Chlamydia trachomatis rRNA [Presence] in Unspecified specimen by Probe and target amplification method Negative Negative [facility] Neisseria gonorrhoeae rRNA [Presence] in Unspecified specimen by Probe and target amplification method Negative Negative [facility] Trichomonas vaginalis DNA [Presence] in Unspecified specimen by Probe and target amplification method Negative Negative [facility] ID Date Data Source [id number] 04/05/2019 06:35:00 PM EST [facility] Name Value Range Interpretation Code Description Data Celeste rce(s) Supporting Document(s) CVE PANEL [facility] al LIPID PANEL Cholesterol [Mass/volume] in Serum or Plasma 189 MG/DL 131 - 200 [facility] Deprecated Triglyceride [Mass/volume] in Serum or Plasma 119 MG/DL 3 5 - 160 [facility] HDL 68 MG/DL 29 - 86 [facility] al Cholesterol in LDL/Cholesterol in HDL [Mass Ratio] in Serum or Plasma 108 mg/dL 65 - 175 [facility] Cholesterol.total/Cholesterol in HDL [Mass Ratio] in Serum o r Plasma 2.8 3.2 - 4.4 L [facility] LDL/HDL 1.59 1.47 - 3.22 [facility] ital CVE RISK CHOL/HDL LDL/HDLMEN: 1/2 AVERAGE 3.43 1.00 AVERAGE 4.97 3.55 2X AVERAGE 9.55 6.25 3X AVERAGE 23.99 7.99WOMEN: 1/2 AVERAGE 3.27 1.47 AVERAGE 4.44 3.22 2X AVERAGE 7.05 5.03 3X AVERAGE 11.04 6.14 ID Date Data Source [id number] 04/05/2019 06:23:00 PM [facility] Name Value Range Interpretation Code Description Data Celeste rce(s) Supporting Document(s) Thyrotropin [Units/volume] in Serum or Plasma by Detec tion limit <= 0.05 mIU/L 4.84 uIU/mL 0.47 - 5.01 [facility] ID Date Data Source [id number] 04/05/2019 06:10:00 PM EST [facility] Name Value Range Interpretation Code Description Data Celeste rce(s) Supporting Document(s) COMPREHENSIVE METABOLIC PANEL [facility] COMPREHENSIVE METABOLIC PANEL Sodium [Moles/volume] in Serum or Plasma 141 mEq/L 134 - 153 [facility] Potassium [Moles/volume] in Serum or Plasma 4.4 mEq/L 3.6 - 5.0 [facility] Chloride [Moles/volume] in Serum or Plasma 104 mEq/L 98 - 107 [facility] Carbon dioxide, total [Moles/volume] in Serum or Plasma 28 MEQ/L 22 - 30 [facility] Glucose [Mass/volume] in Serum or Plasma 94 MG/DL 65 - 110 [facility] BUN 14 MG/DL 7 - 21 [facility] Creatinine [Mass/volume] in Serum or Plasma 0.8 MG/DL 0.7 - 1.5 [facility] BUN/CREAT 18 8 - 27 [facility] Protein [Mass/volume] in Serum or Plasma 7.2 G/DL 6.3 - 8.2 [facility] Albumin [Mass/volume] in Serum or Plasma 4.3 G/DL 3.9 - 5.0 [facility] Globulin [Mass/volume] in Serum by calculation 2.9 GM/DL 2.4 - 3.2 [facility] A/G RATIO 1.5 0.8 - 2.0 [facility] Calcium [Mass/volume] in Serum or Plasma 9.5 MG/DL 8.4 - 10.2 [facility] Bilirubin.total [Mass/volume] in Serum or Plasma <0.7 MG/DL 0.2 - 1.3 [facility] Alkaline phosphatase [Enzymatic activity/volume] in Serum or Plasma 57 U/L 38 - 126 [facility] Aspartate aminotransferase [Enzymatic activity/volume] in Serum or Plasma 15 U/L 5 - 40 [facility] Alanine aminotransferase [Enzymatic activity/volume] in Seru m or Plasma 16 U/L 7 - 56 [facility] Anion gap 3 in Serum or Plasma 9.0 mmol/L 8.0 - 16.0 [facility] AGE 33 yrs [facility] NON-AA GFR >60 mL/min [facility] ital AFR AMER GFR >60 mL/min [facility] Male GFR In terprentation [...] >32 mL/min Normal ID Date Data Source [id number] 04/05/2019 06:08:00 PM EST [facility] Name Value Range Interpretation Code Description Data Celeste rce(s) Supporting Document(s) CBC W/AUTOMATED DIFF [facility] COMPLETE BLOOD COUNT Leukocytes [#/volume] in Blood by Automated count 6.7 10^3/uL 4.2 - 1 1.0 [facility] Erythrocytes [#/volume] in Blood by Automated count 4.20 10^6/uL 4. 20 - 5.40 [facility] Hemoglobin [Mass/volume] in Blood 12.4 g/dL 12.0 - 16.0 [facility] Hematocrit [Volume Fraction] of Blood by Automated count 39.2 % 3 7.0 - 47.0 [facility] Erythrocyte mean corpuscular volume [Entitic volume] by Auto mated count 93.3 fL 81.0 - 101 [facility] Erythrocyte mean corpuscular hemoglobin [Entitic mass] by Automated count 29.5 pg 27.0 - 34.0 [facility] Erythrocyte mean corpuscular hemoglobin concentration [Mass/volume] by Automated count 31.6 g/dL 31.0 - 36.0 [facility] Erythrocyte distribution width [Ratio] by Automated count 14.4 % 11.5 - 14.5 [facility] Platelets [#/volume] in Blood by Automated count 303 10^3/uL 150 - 45 0 [facility] Platelet mean volume [Entitic volume] in Blood by Automated count 9.8 fL 7.4 - 10.4 [facility] Neutrophils/100 leukocytes in Blood by Automated count 59.9 % 37. 0 - 80.0 [facility] Lymphocytes/100 leukocytes in Blood by Manual count 28.7 % 25.0 - 40.0 [facility] Monocytes/100 leukocytes in Blood by Automated count 7.6 % 3.0 - 8.0 [facility] Eosinophils/100 leukocytes in Blood by Automated count 3.3 % 0.0 - 7.0 [facility] Basophils/100 leukocytes in Blood by Automated count 0.4 % 0.0 - 2.5 [facility] %IG 0.1 % 0.0 - 0.0 [facility] %NRBC 0.0 % 0.0 - 0.0 [facility] al Neutrophils [#/volume] in Blood by Automated count 4.02 10^3/uL 2.00 - 6.90 [facility] Lymphocytes [#/volume] in Blood by Automated count 1.93 10^3/uL 0.60 - 3.40 [facility] Monocytes [#/volume] in Blood by Automated count 0.51 10^3/uL 0.00 - 0.90 [facility] Eosinophils [#/volume] in Blood by Automated count 0.22 10^3/uL 0.00 - 0.70 [facility] Basophils [#/volume] in Blood by Automated count 0.03 10^3/uL 0.00 - 0.20 [facility] #IG 0.01 10^3/uL 0.00 - 0.10 [facility] ospital #NRBC 0.00 10^3/uL 0.00 - 0.00 [facility] ospital MANUAL DIFF NOT INDICATED [facility] RBC MORPH NOT INDICATED [facility] spital ID Date Data Source [id number] 04/05/2019 06:06:00 PM EST [facility] Name Value Range Interpretation Code Description Data Celeste rce(s) Supporting Document(s) Hemoglobin A1c/Hemoglobin.total in Blood 5.4 % 4.4 - 6.1 [facility] {A1]{HB] ID Date Data Source [id number] 04/05/2019 07:10:00 AM EST [facility] ([facility]) Name Value Range Interpretation Code Description Data Celeste rce(s) Supporting Document(s) Thyrotropin [Units/volume] in Serum or Plasma 4.84 uIU/mL 0.47-5.[address] [facility] ([facility]) Is patient fasting? N ID Date Data Source [id number] 04/05/2019 07:10:00 AM EST [facility] ([facility]) Name Value Range Interpretation Code Description Data Celeste rce(s) Supporting Document(s) Cve Panel (SEE NOTE) [facility] ([facility]) Is patient fasting? N Cholesterol 189 mg/dL 131-200 [facility] ([facility]) Is patient fasting? N Triglycerides 119 mg/dL 35-160 [facility] ([facility]) Is patient fasting? N Risk Factor 2.8 3.2-4.4 Below low normal [facility] ([facility]) Is patient fasting? N LDL 108 mg/dL 65-175 [facility] ([facility]) Is patient fasting? N HDL 68 mg/dL 29-86 [facility] ([facility]) Is patient fasting? N LDL/HDL 1.59 1.47-3.22 [facility] ([facility]) Is patient fasting? N ID Date Data Source [id number] 04/05/2019 07:10:00 AM EST [facility] ([facility]) Name Value Range Interpretation Code Description Data Celeste rce(s) Supporting Document(s) Hemoglobin A1c/Hemoglobin.total in Blood 5.4 % 4.4-6.1 [facility] ([facility]) Is patient fasting? N ID Date Data Source [id number] 04/05/2019 07:10:00 AM EST [facility] ([facility]) Name Value Range Interpretation Code Description Data Celeste rce(s) Supporting Document(s) Comprehensive Metabo (SEE NOTE) [facility] ( [facility]) Is patient fasting? N Sodium 141 meq/L 134-153 [facility] ([facility]) Is patient fasting? N Potassium 4.4 meq/L 3.6-5.0 [facility] ([facility]) Is patient fasting? N Chloride 104 meq/L 98-107 [facility] ([facility]) Is patient fasting? N Glucose 94 mg/dL 65-110 [facility] ([facility]) Is patient fasting? N Co2 28 meq/L 22-30 [facility] ([facility]) Is patient fasting? N BUN 14 mg/dL 7-21 [facility] ([facility]) Is patient fasting? N Creatinine 0.8 mg/dL 0.7-1.5 [facility] ([facility]) Is patient fasting? N BUN/Creat 18 8-27 [facility] ([facility]) Is patient fasting? N Total Protein 7.2 g/dL 6.3-8.[address] [facility] ([facility]) Is patient fasting? N Globulin 2.9 GM/DL 2.4-3.2 [facility] ([facility]) Is patient fasting? N A/G Ratio 1.5 0.8-2.0 [facility] ([facility]) Is patient fasting? N Albumin 4.3 g/dL 3.9-5.0 [facility] ([facility]) Is patient fasting? N Calcium 9.5 mg/dL 8.4-10.2 [facility] ([facility]) Is patient fasting? N Total Bili <0.7 mg/dL 0.2-1.[address] [facility] ([facility]) Is patient fasting? N SGPT/Alt 16 U/L 7-56 [facility] ([facility]) Is patient fasting? N Alkaline Phos 57 U/L 38-126 [facility] ([facility]) Is patient fasting? N Sgot/Ast 15 U/L 5-40 [facility] ([facility]) Is patient fasting? N Age 33 yrs [facility] ([facility]) Is patient fasting? N Anion Gap 9.0 mmol/L 8.0-16.0 [facility] ([facility]) Is patient fasting? N Non-Aa GFR >60 mL/min [facility] ([facility]) Is patient fasting? N Afr Amer GFR >60 mL/min [facility] ([facility]) Is patient fasting? N ID Date Data Source [id number] 04/05/2019 07:10:00 AM EST [facility] ([facility]) Name Value Range Interpretation Code Description Data Celeste rce(s) Supporting Document(s) WBC 6.7 10^3/uL 4.2-11.0 [facility] ([facility]) Is patient fasting? N CBC W/Automated Diff (SEE NOTE) [facility] ( [facility]) Is patient fasting? N Hemoglobin 12.4 g/dL 12.0-16.0 [facility] ([facility]) Is patient fasting? N RBC 4.20 10^6/uL 4.20-5.40 [facility] ([facility]) Is patient fasting? N MCV 93.3 fL 81.0-101 [facility] ([facility]) Is patient fasting? N MCH 29.5 pg 27.0-34.0 [facility] ([facility]) Is patient fasting? N Hematocrit 39.2 % 37.0-47.0 [facility] ([facility]) Is patient fasting? N MCHC 31.6 g/dL 31.0-36.0 [facility] ([facility]) Is patient fasting? N RDW 14.4 % 11.5-14.5 [facility] ([facility]) Is patient fasting? N Neut 59.9 % 37.0-80.0 [facility] ([facility]) Is patient fasting? N MPV 9.8 fL 7.4-10.4 [facility] ([facility]) Is patient fasting? N Platelets 303 10^3/uL 150-450 [facility] ([facility]) Is patient fasting? N Lymph 28.7 % 25.0-40.0 [facility] ([facility]) Is patient fasting? N [place] 7.6 % 3.0-8.0 [facility] ([facility]) Is patient fasting? N Eos 3.3 % 0.0-7.0 [facility] ([facility]) Is patient fasting? N %Ig 0.1 % 0.0-0.0 Above high normal [facility] ([facility]) Is patient fasting? N Baso 0.4 % 0.0-2.5 [facility] ([facility]) Is patient fasting? N %NRBC 0.0 % 0.0-0.0 [facility] ([facility]) Is patient fasting? N #Neut 4.02 10^3/uL 2.00-6.90 [facility] ([facility]) Is patient fasting? N #[place] 0.51 10^3/uL 0.00-0.90 [facility] ([facility]) Is patient fasting? N #Eos 0.22 10^3/uL 0.00-0.70 [facility] ([facility]) Is patient fasting? N #Lymph 1.93 10^3/uL 0.60-3.40 [facility] ([facility]) Is patient fasting? N #Baso 0.03 10^3/uL 0.00-0.20 [facility] ([facility]) Is patient fasting? N #Ig 0.01 10^3/uL 0.00-0.10 [facility] ([facility]) Is patient fasting? N #NRBC 0.00 10^3/uL 0.00-0.00 [facility] ([facility]) Is patient fasting? N RBC Morph NOT INDICATED [facility] ([facility]) Is patient fasting? N Manual Diff NOT INDICATED [facility] ([facility]) Is patient fasting? N ID Date Data Source [id number] 03/28/2019 11:15:00 [place] [address] PHONE: [phone] FAX: [phone] Name .................. : BAL Beyer Acct Number.................. : [id number] ROOM. ................. : Number ................... : [id number] Stay type ............. : O/P Discharge Date......... ... : 03/27/19 Admit Date ......... : 03/27/19 Admit Phys .................... : REED MCDANIELS Date of ....... : 1985 Family Phys ................... : REED MCDANIELS Phone .................. : [phone] Age ................................ : 33 Film# .................. .:[id number] Sex ................................. : F Unsigned transcriptions are preliminary reports and do not represent a medical or legal document [place] [id number] COMPLETE:03/27/19 12:25 [id number] (REASON FOR PROCESS PAIN LEFT WRIST SERIES: FINDINGS: No evidence for fractures, subluxation or adjacent soft tissue swelling is noted. IMPRESSION: Unremarkable left wrist. Electronically Reviewed and Signed By Abdiel Pyle MD , 03/28/19 11:15, [facility] Transcribe Initials: ALL , Transcribe Date: 03/27/19 22:06, Dictation Date: Copy for: 710 MED REC Page 1 of 1 Name Value Range Interpretation Code Description Data Celeste rce(s) Supporting Document(s) ID Date Data Source [id number] 03/26/2019 03:38:00 PM EST [facility] ([facility]) Name Value Range Interpretation Code Description Data Celeste rce(s) Supporting Document(s) Color of Urine yellow [facility] ([facility]) Appearance of Urine clear [facility] ([facility]) Spec [place] 1.020 [facility] ([facility]) pH of Urine by Test strip 5 [facility] NT ([facility]) Leukocytes + [facility] ([facility]) Inhouse Glucose normal [facility] ([facility]) Protein [Presence] in Urine by Test strip ++ [facility] ([facility]) Nitrate [Presence] in Urine negative [facility] ([facility]) Ketones [Presence] in Urine by Test strip + [facility] ([facility]) Bilirubin.total [Presence] in Urine by Test strip negative [facility] ([facility]) Urobilinogen normal [facility] ([facility]) Blood type and Indirect antibody screen panel - Blood 50 [facility] ([facility]) ID Date Data Source [id number] 03/28/2019 10:42:00 AM [facility] Does the specimen need to be recollected ?: YREASON REJECTED:: TOO OLD, SPECIMEN CUP EMPTYTEST(S) ORDERED:: URINE CULTURE Name Value Range Interpretation Code Description Data Celeste rce(s) Supporting Document(s) Laboratory URINE CULTURE [facility] Laboratory studies (set) TOO OLD, SPECIMEN CUP EMPTY [facility] One or more of the tests that youordered cannot be performed.Please recollect, reorder and resubmit. ID Date Data Source [id number] 03/26/2019 03:34:00 PM EST [facility] ([facility]) Name Value Range Interpretation Code Description Data Celeste rce(s) Supporting Document(s) Laboratory URINE CULTURE [facility] ([facility]) Laboratory studies (set) TOO OLD, SPECIME <SEE NOTE> [facility] ([facility]) TOO OLD, SPECIMEN CUP EMPTY One or more of the tests that you ordered cannot be performed. Please recollect, reorder and resubmit. ID Date Data Source [id number] 03/26/2019 11:30:00 AM EST [facility] ([facility]) Name Value Range Interpretation Code Description Data Celeste rce(s) Supporting Document(s) Lab - Specimen Rejec (SEE NOTE) [facility] ( [facility]) Specimen Integrity/Specimen Recollection The patient sample needs to be resubmitted for the following reason: Test(s) Ordered URINE C/S [facility] ([facility]) Rejection [facility] { One or more of the tests you ordered cannot be performed. { Please recollect, reorder, and resubmit if needed. ID Date Data Source [id number] 03/28/2019 12:15:00 PM [facility] Name Value Range Interpretation Code Description Data Celeste rce(s) Supporting Document(s) LAB - SPECIMEN REJECTION [facility] Specimen Integrity/Specimen Recollection The patient sample needs to be resubmitted for the following reason: Test(s) Ordered URINE C/S [facility] Rejection Reason QNS [facility] { One or more of the tests you ordered cannot be performed.{ Please recollect, reorder, and resubmit if needed. Procedure Vital Signs ID Date Data Source UNK Name Value Range Interpretation Code Description Data Source(s) Body surface area 2.24 m2 2.[address] [facility] ([facility]) Body mass index (BMI) [Ratio] 44.8 kg/m2 44.8 k g/m2 [facility] ([facility]) Body height 65 [in_i] 65 [in_i] [facility] ([facility]) 5'5" Body weight 122.018 kg 122.[address] [facility] ([facility]) Body weight 269.00 [lb_av] 269.00 [lb_av] MED[facility] T ([facility]) Oxygen saturation in Arterial blood by Pulse oximetry 98 % 98 % [facility] ([facility]) Respiratory rate 18 /min 18 /min [facility] ( [facility]) Body temperature 98.4 [degF] 98.4 [degF] [facility] ([facility]) Heart rate 92 /min 92 /min [facility] ([facility]) Diastolic blood pressure 64 mm[Hg] 64 mm[Hg] [facility] ([facility]) Systolic blood pressure 104 mm[Hg] 104 mm[Hg] [facility] Body surface area 2.26 m2 2.[address] [facility] ([facility]) Body mass index (BMI) [Ratio] 45.8 kg/m2 45.8 k g/m2 [facility] ([facility]) Body height 65 [in_i] 65 [in_i] [facility] ([facility]) 5'5" Body weight 124.740 kg 124.[address] [facility] ([facility]) Body weight 275.00 [lb_av] 275.00 [lb_av] [facility] T ([facility]) Oxygen saturation in Arterial blood by Pulse oximetry 99 % 99 % [facility] ([facility]) Respiratory rate 18 /min 18 /min [facility] ( [facility]) Body temperature 97.9 [degF] 97.9 [degF] [facility] ([facility]) Heart rate 82 /min 82 /min [facility] ([facility]) Diastolic blood pressure 80 mm[Hg] 80 mm[Hg] [facility] ([facility]) Systolic blood pressure 124 mm[Hg] 124 mm[Hg] [facility])
[2020-04-30 01:50] VITALS: BP 116/79
[2020-04-30] MEDS: ONDANSETRON 4 MG ORAL DISINTEGRATING TAB SL SCH ×4 (02:35→20:01)
[2020-04-30 06:00] VITALS: BP 8/63
[2020-04-30 06:52] LABS: HEMATOCRIT 41.7 % (36.0-47.0); HEMOGLOBIN 13.5 g/dl (12.0-15.5); MEAN CORPUSCULAR HEMOGLOBIN 29.5 pg (27.0-33.0); MEAN CORPUSCULAR HGB CONC 32.4 g/dl (32.0-36.5); PLATELET COUNT, AUTOMATED 361 10^3/uL (150-450); RED BLOOD COUNT 4.58 10^6/uL (4.00-5.40); WHITE BLOOD COUNT 4.2 10^3/uL (4.0-10.0)
[2020-04-30 07:37] LABS: ALBUMIN 3.7 GM/DL (3.2-5.2); BILIRUBIN,TOTAL 0.4 MG/DL (0.2-1.0); CALCIUM LEVEL 9.5 MG/DL (8.5-10.1); CREATININE FOR GFR 1.16 MG/DL (0.55-1.30); GLOMERULAR FILTRATION RATE 57.3 (>60); POTASSIUM SERUM 3.9 MEQ/L (3.5-5.1); TOTAL PROTEIN 7.5 GM/DL (6.4-8.2)
[2020-04-30 08:00] VITALS: BP 102/60
[2020-04-30] MEDS: ASCORBIC ACID 500 MG TAB PO SCH (09:00)
[2020-04-30] MEDS ORDERED: ENOXAPARIN 40MG/0.4ML SYRINGE (J1650 PER 10MG) SC SCH (09:00)
[2020-04-30] MEDS: methylPREDNISolone 1,000 MG, VIAL MATE ADAPTER 1 EACH in D5W 250 ML IV SCH (09:29)
--- NOTE | 2020-04-30 09:36 | ECGEPIP ---
[facility] - ED Test Date: 2020-04-29 Pat Name: KEITH SELBY Department: Room: - Gender: Female [employer] 1985 Requested By: Christiano German Order Number: [id number] Reading MD: Lin Lam Measurements Intervals [place] Rate: 62 P: 43 NH: 144 QRS: 33 QRSD: 84 T: 18 QT: 412 QTc: 418 Interpretive Statements Normal sinus rhythm No prior Electronically Signed on 04-30-2020 9:36:10 EST by Lin Lam
[2020-04-30] MEDS: EXCEDRIN MIGRAINE TABLET PO PRN ×3 (10:24→23:15)
--- NOTE | 2020-04-30 11:44 | IPNPDOC ---
Text Note Date of Service The patient was seen on 04/30/20. NOTE Subjective: Patient was seen and examined this morning at bedside. Say she is comfortable she does have a mild headache. Her right eye is still laterally deviated but without eye pain. Patient denies any shortness of breath or chest pain and abdominal discomfort she overall feels well. She denies any transient loss of vision in her eye. She denies any syncopal episodes. Objective: Constitutional: Awake and alert, in no apparent distress ENT: Sclera are clear Respiratory: Lungs CTA bilaterally. No respiratory distress. N Cardiovascular: RRR S1 and S2 are normal, no murmur Gastrointestinal: Abdomen is soft, non distended, non tender Musculoskeletal: No edema. Neurologic: Right eye is laterally deviated and her ocular movements in the right eye on it and unable to abduct medially past the midline. Rest of movements of both eyes are intact. No other obvious focal neurologic deficits. Mental Status: A&O x3, normal affect Skin: Warm, dry Assessment/plan: Patient is a 34-year-old female with limited past medical history consisting of right-sided lensectomy was subsequent migraine headaches and to have a third nerve palsy with evidence of demyelination on MRI. Patient being admitted to the hospital and treated with high-dose Solu-Medrol total of 5 days followed by prednisone taper. As has been discussed with neurology who initially recommended lumbar puncture but this will not be performed due to risks associated with LP in a patient with Chiari I malformation. 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 Case was discussed with neurologist Dr jarvis who will see the patient. He recommended 5 days of IV solumedrol followed by a prednisone taper (60,40,20,10 each for 2 days) at time of discharge. No plans for LP to look for monoclonal bands at this time due to Chiari I malformation. # Chiari I malformation: Noted incidentally on MRI. Will need to be referred to neurosurgery at time of discharge for follow-up. # obesity: BMI 45.8. Complicates care. Lifestyle modifications. Follow-up with PCP. # vitamin D deficiency: replace with 50k units weekly for 12 weeks then maintenance. # DVT prophylaxis: [facility] VS,Josie, I+O VS, Josie, I+O Laboratory Tests 04/29/20 17:59 04/30/20 06:08 Vital Signs Date Time Temp Pulse Resp B/P (MAP) Pulse Ox O2 Delivery O2 Flow Rate FiO2 04/30/20 08:00 97.6 74 20 102/60 (74) 95 Room Air I&O- Last 24 Hours up to 6 AM 04/30/20 06:00 Intake Total 416 ml Output Total 0 ml Balance 416 ml DANIELLE ZURITA MD Apr 30, 2020 11:44
[2020-04-30 14:00] VITALS: BP 108/48
[2020-04-30] MEDS ORDERED: PROHANCE 279.3MG/ML 15ML VIAL As Ordered ONE (14:54)
[2020-04-30] MEDS ORDERED: PROHANCE 279.3MG/ML 5ML VIAL As Ordered ONE (14:54)
--- NOTE | 2020-04-30 17:49 | REPVR ---
PROCEDURE INFORMATION: Exam: MR Thoracic Spine Without and With Contrast Exam date and time: 04/30/2020 4:19 PM Age: 34 years old Clinical indication: Weakness; Additional info: With an without contrast. Ms workup. TECHNIQUE: Imaging protocol: Multiplanar magnetic resonance images of the thoracic spine without and with intravenous contrast. Contrast material: PROHANCE; Contrast volume: 12 ml; Contrast route: INTRAVENOUS (IV); COMPARISON: No relevant prior studies available. FINDINGS: Vertebrae: Unremarkable. Spinal cord: The conus tip is at the T12-L1 level. Normal signal. No cord compression. T1-T2: No significant disc disease. No significant spinal canal stenosis. T2-T3: Left central disc protrusion measuring 2.2 mm. No direct cord impingement identified at the time of imaging. There is mild left anterolateral cord deformity (series 701, image 1, frames 69-71). T3-T4: Left central-subarticular disc protrusion measuring 1.7 mm. No direct cord impingement identified at the time of imaging. There is mild left anterolateral cord deformity (series 701, image 1, frame 64). T4-T5: No significant disc disease. No significant spinal canal stenosis. T5-T6: No significant disc disease. No significant spinal canal stenosis. T6-T7: No significant disc disease. No significant spinal canal stenosis. T7-T8: Broad-based central-left central disc protrusion measuring 2.4 mm AP dimension. No cord impingement. T8-T9: No significant disc disease. No significant spinal canal stenosis. T9-T10: No significant disc disease. No significant spinal canal stenosis. T10-T11: Right central disc protrusion measuring 2.2 mm. No cord impingement. T11-T12: No significant disc disease. No significant spinal canal stenosis. Soft tissues: Unremarkable. IMPRESSION: T2-3, T7-8 and T10-11 disc protrusions. Left T2-3 and T3-4 cord deformities. Clinical correlation with the patient's specific symptomatology is recommended. No lesions suggestive thoracic spinal cord multiple sclerosis. Electronically signed by: Sacha Adhikari On 04/30/2020 17:49:48 PM
--- NOTE | 2020-04-30 17:52 | REPVR ---
PROCEDURE INFORMATION: Exam: MR Cervical Spine Without and With Contrast Exam date and time: 04/30/2020 4:19 PM Age: 34 years old Clinical indication: Weakness; Additional info: With an without contrast. Ms workup. TECHNIQUE: Imaging protocol: Multiplanar magnetic resonance images of the cervical spine without and with contrast. Contrast material: PROHANCE; Contrast volume: 12 ml; Contrast route: INTRAVENOUS (IV); COMPARISON: No relevant prior studies available. FINDINGS: Vertebrae: Unremarkable. Spinal cord: See below. Normal signal. C2-C3: No significant disc disease. No significant spinal stenosis. C3-C4: Mild posterior annular bulging. C4-C5: No significant disc disease. No significant spinal stenosis. C5-C6: Mild posterior annular bulging. C6-C7: Right central disc protrusion measuring 3.0 mm. Mild right anterior cord impingement. C7-T1: No significant disc disease. No significant spinal stenosis. Soft tissues: Unremarkable. Vertebral arteries: Expected flow voids in the vertebral arteries. IMPRESSION: Right C6-C7 disc protrusion with mild anterior cord impingement. No spinal cord signal abnormality or enhancement to suggest multiple sclerosis. Electronically signed by: Sacha Adhikari On 04/30/2020 17:52:39 PM
[2020-04-30 22:00] VITALS: BP 109/58
[2020-05-01] MEDS: ONDANSETRON 4 MG ORAL DISINTEGRATING TAB SL SCH ×4 (02:54→21:04)
[2020-05-01 06:00] VITALS: BP 129/61
[2020-05-01 06:00] LABS: HEMATOCRIT 37.4 % (36.0-47.0); HEMOGLOBIN 11.8 g/dl (12.0-15.5); MEAN CORPUSCULAR HGB CONC 31.6 g/dl (32.0-36.5); MEAN CORPUSCULAR VOLUME 91.9 fl (80.0-96.0); PLATELET COUNT, AUTOMATED 315 10^3/uL (150-450); RED BLOOD COUNT 4.07 10^6/uL (4.00-5.40); WHITE BLOOD COUNT 10.8 10^3/uL (4.0-10.0)
[2020-05-01 06:24] LABS: ALBUMIN 3.2 GM/DL (3.2-5.2); ALT/SGPT 16 U/L (12-78); BILIRUBIN,TOTAL 0.5 MG/DL (0.2-1.0); BLOOD UREA NITROGEN 15 MG/DL (7-18); CARBON DIOXIDE LEVEL 24 MEQ/L (21-32); CHLORIDE LEVEL 111 MEQ/L (98-107); CREATININE FOR GFR 1.06 MG/DL (0.55-1.30); GLOMERULAR FILTRATION RATE > 60.0 (>60); GLUCOSE, FASTING 151 MG/DL (70-100); SODIUM LEVEL 141 MEQ/L (136-145); TOTAL PROTEIN 6.6 GM/DL (6.4-8.2)
[2020-05-01] MEDS: NS 1,000 ML IV SCH ×2 (08:25→21:04)
[2020-05-01] MEDS: ENOXAPARIN 40MG/0.4ML SYRINGE (J1650 PER 10MG) SC SCH (08:26)
[2020-05-01] MEDS: ASCORBIC ACID 500 MG TAB PO SCH (08:26)
[2020-05-01] MEDS: methylPREDNISolone 1,000 MG, VIAL MATE ADAPTER 1 EACH in D5W 250 ML IV SCH (08:45)
--- NOTE | 2020-05-01 11:05 | IPNPDOC ---
Text Note Date of Service The patient was seen on 05/01/20. NOTE Subjective: Patient was seen and examined this morning at bedside. Is comfortable sitting at the breakfast she saw neurology last evening. She's feeling better today. She has no complaints at this time her headaches better today she specifically patch on her right eye which is helped with her headache. Objective: Constitutional: Awake and alert, in no apparent distress ENT: Sclera are clear Respiratory: Lungs CTA bilaterally. No respiratory distress. N Cardiovascular: RRR S1 and S2 are normal, no murmur Gastrointestinal: Abdomen is soft, non distended, non tender Musculoskeletal: No edema. Neurologic: Right eye is laterally deviated and her ocular movements in the right eye on it and unable to abduct medially past the midline. Rest of movements of both eyes are intact. No other obvious focal neurologic deficits. Mental Status: A&O x3, normal affect Skin: Warm, dry Assessment/plan: Patient is a 34-year-old female with limited past medical history consisting of right-sided lensectomy was subsequent migraine headaches and to have a third nerve palsy with evidence of demyelination on MRI. Patient being admitted to the hospital and treated with high-dose Solu-Medrol total of 5 days followed by prednisone taper. As has been discussed with neurology who initially recommended lumbar puncture but this will not be performed due to risks associated with LP i n a patient with Chiari I malformation. 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 Case was discussed with neurologist Dr jarvis who saw the patient last evening. He recommended 5 days of IV solumedrol followed by a prednisone taper (60,40,20,10 each for 2 days) at time of discharge. No plans for LP to look for monoclonal bands at this time due to Chiari I malformation. PCP will need to refer her to neurology at time of discharge. # Chiari I malformation: Noted incidentally on MRI. Will need to be referred to neurosurgery at time of discharge for follow-up. # obesity: BMI 45.8. Complicates care. Lifestyle modifications. Follow-up with PCP. # vitamin D deficiency: replace with 50k units weekly for 12 weeks then maintenance. # DVT prophylaxis: Lovenox [facility] Hospitalist VS,Josie, I+O VS, Jadone, I+O Laboratory Tests 05/01/20 05:47 Vital Signs Date Time Temp Pulse Resp B/P (MAP) Pulse Ox O2 Delivery O2 Flow Rate FiO2 05/01/20 06:00 97.1 83 17 129/61 (83) 95 Room Air I&O- Last 24 Hours up to 6 AM 05/01/20 06:00 Intake Total 1641 ml Output Total 1900 ml Balance -259 ml DANIELLE ZURITA MD May 01, 2020 11:05
[2020-05-01] MEDS: EXCEDRIN MIGRAINE TABLET PO PRN (21:55)
[2020-05-01 22:00] VITALS: BP 108/54
[2020-05-02] MEDS: ONDANSETRON 4 MG ORAL DISINTEGRATING TAB SL SCH ×4 (03:00→20:58)
[2020-05-02 06:00] VITALS: BP 122/61
[2020-05-02 06:53] LABS: HEMOGLOBIN 11.6 g/dl (12.0-15.5); MEAN CORPUSCULAR HGB CONC 32.2 g/dl (32.0-36.5); PLATELET COUNT, AUTOMATED 289 10^3/uL (150-450); RED BLOOD COUNT 3.87 10^6/uL (4.00-5.40); WHITE BLOOD COUNT 9.5 10^3/uL (4.0-10.0)
[2020-05-02 07:21] LABS: ALBUMIN 2.9 GM/DL (3.2-5.2); ALT/SGPT 13 U/L (12-78); BILIRUBIN,TOTAL 0.2 MG/DL (0.2-1.0); BLOOD UREA NITROGEN 14 MG/DL (7-18); CALCIUM LEVEL 8.4 MG/DL (8.5-10.1); CARBON DIOXIDE LEVEL 25 MEQ/L (21-32); CHLORIDE LEVEL 112 MEQ/L (98-107); CREATININE FOR GFR 0.89 MG/DL (0.55-1.30); GLOMERULAR FILTRATION RATE > 60.0 (>60); GLUCOSE, FASTING 125 MG/DL (70-100); POTASSIUM SERUM 4.1 MEQ/L (3.5-5.1); SODIUM LEVEL 144 MEQ/L (136-145); TOTAL PROTEIN 6.1 GM/DL (6.4-8.2)
[2020-05-02] MEDS: EXCEDRIN MIGRAINE TABLET PO PRN (08:28)
[2020-05-02] MEDS: ASCORBIC ACID 500 MG TAB PO SCH (08:28)
[2020-05-02] MEDS: methylPREDNISolone 1,000 MG, VIAL MATE ADAPTER 1 EACH in D5W 250 ML IV SCH (08:29)
[2020-05-02] MEDS: ENOXAPARIN 40MG/0.4ML SYRINGE (J1650 PER 10MG) SC SCH (08:29)
[2020-05-02] MEDS ORDERED: VITAMIN D 50,000 UNITS CAPSULE (ERGOCALCIFEROL 1.25MG) PO SCH (09:00)
[2020-05-02] MEDS ORDERED: CYCLOBENZAPRINE 10MG TABLET As Ordered ONE (13:41)
[2020-05-02] MEDS ORDERED: CYCLOBENZAPRINE 5MG TABLET PO PRN (13:55)
[2020-05-02 14:00] VITALS: BP 99/61
--- NOTE | 2020-05-02 19:57 | IPNPDOC ---
Text Note Date of Service The patient was seen on 05/02/20. NOTE Subjective: She is awake and sitting up in the bed when I examined her. She reports that she is having some worsening of her headaches, and the Excedrin Migraine medication is not working well for her. The headaches are located at the base of her skull/upper neck, and I suspect that it may be related to a tension headache, therefore we will continue the Excedrin Migraine, but I will also add a low-dose muscle relaxer on an as-needed basis to her regimen to see if this will help alleviate some of the headache pain that she is experiencing. Otherwise, she does continue to suffer from significant diplopia secondary to the lateral gaze of her right eye, she has to put a patch on her right eye to accomplish activities such as eating or other things that require fine movements. She also mentions that she has had a couple of spasms in her legs, I'm hopeful that the muscle relaxer will also help alleviate these as well. Objective: Constitutional: Awake and alert, in no apparent distress ENT: Sclera are clear Respiratory: Lungs CTA bilaterally. No respiratory distress. N Cardiovascular: RRR S1 and S2 are normal, no murmur Gastrointestinal: Abdomen is soft, non distended, non tender Musculoskeletal: No edema. Neurologic: Right eye is laterally deviated and her ocular movements in the right eye on it and unable to abduct medially past the midline. Rest of moveme nts of both eyes are intact. No other obvious focal neurologic deficits. Mental Status: A&O x3, normal affect Skin: Warm, dry Assessment/plan: Patient is a 34-year-old female with limited past medical history consisting of right-sided lensectomy was subsequent migraine headaches and to have a third nerve palsy with evidence of demyelination on MRI. Patient being admitted to the hospital and treated with high-dose Solu-Medrol total of 5 days (last dose 05/03) followed by prednisone taper. As has been discussed with neurology who initially recommended lumbar puncture but this will not be performed due to risks associated with LP in a patient with Chiari I malformation. 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 Case was discussed with neurologist Dr jarvis who saw the patient last evening. He recommended 5 days of IV so lumedrol followed by a prednisone taper (60,40,20,10 each for 2 days) at time of discharge. No plans for LP to look for monoclonal bands at this time due to Chiari I malformation. PCP will need to refer her to neurology at time of discharge. # Chiari I malformation: Noted incidentally on MRI. Will need to be referred to neurosurgery at time of discharge for follow-up. # obesity: BMI 45.8. Complicates care. Lifestyle modifications. Follow-up with PCP. # vitamin D deficiency: replace with 50k units weekly for 12 weeks then maintenance. # DVT prophylaxis: Lovenox Dispo: Anticipate discharge tomorrow after she finishes her dose of IV Solu- Medrol VS,Fishbone, I+O VS, Fishbone, I+O Laboratory Tests 05/02/20 06:19 Vital Signs Date Time Temp Pulse Resp B/P (MAP) Pulse Ox O2 Delivery O2 Flow Rate FiO2 05/02/20 14:00 97.6 60 21 99/61 (74) 97 Room Air I&O- Last 24 Hours up to 6 AM 05/02/20 06:00 Intake Total 2766 ml Output Total 1850 ml Balance 916 ml LEIDY ARENAS DO May 02, 2020 19:57
[2020-05-02 22:00] VITALS: BP 119/68
[2020-05-03] MEDS: ONDANSETRON 4 MG ORAL DISINTEGRATING TAB SL SCH ×2 (03:00→09:07)
[2020-05-03 06:00] VITALS: BP 111/69
[2020-05-03 06:16] LABS: HEMATOCRIT 37.6 % (36.0-47.0); MEAN CORPUSCULAR HEMOGLOBIN 29.1 pg (27.0-33.0); MEAN CORPUSCULAR HGB CONC 31.9 g/dl (32.0-36.5); MEAN CORPUSCULAR VOLUME 91.3 fl (80.0-96.0); PLATELET COUNT, AUTOMATED 301 10^3/uL (150-450); RED BLOOD COUNT 4.12 10^6/uL (4.00-5.40); WHITE BLOOD COUNT 5.7 10^3/uL (4.0-10.0)
[2020-05-03 06:48] LABS: ALT/SGPT 17 U/L (12-78); BILIRUBIN,TOTAL 0.2 MG/DL (0.2-1.0); BLOOD UREA NITROGEN 14 MG/DL (7-18); CALCIUM LEVEL 8.4 MG/DL (8.5-10.1); CARBON DIOXIDE LEVEL 26 MEQ/L (21-32); CHLORIDE LEVEL 107 MEQ/L (98-107); CREATININE FOR GFR 0.97 MG/DL (0.55-1.30); GLOMERULAR FILTRATION RATE > 60.0 (>60); GLUCOSE, FASTING 137 MG/DL (70-100); POTASSIUM SERUM 3.7 MEQ/L (3.5-5.1); SODIUM LEVEL 142 MEQ/L (136-145); TOTAL PROTEIN 6.2 GM/DL (6.4-8.2)
[2020-05-03] MEDS: ENOXAPARIN 40MG/0.4ML SYRINGE (J1650 PER 10MG) SC SCH (09:07)
[2020-05-03] MEDS: methylPREDNISolone 1,000 MG, VIAL MATE ADAPTER 1 EACH in D5W 250 ML IV SCH (09:07)
[2020-05-03] MEDS: EXCEDRIN MIGRAINE TABLET PO PRN (09:07)
[2020-05-03] MEDS: ASCORBIC ACID 500 MG TAB PO SCH (09:07)
[2020-05-03] MEDS ORDERED: DRIS50003 PO (10:28)
[2020-05-03] MEDS ORDERED: ONDA4TAB6 SL (10:28)
[2020-05-03] MEDS ORDERED: CYCL5TAB PO (10:28)
[2020-05-03] MEDS ORDERED: PRED20TA PO (10:28)
--- NOTE | 2020-05-03 18:11 | DS.PDOC ---
Discharge Summary General Date of Admission Apr 29, 2020 at 22:25 Date of Discharge 05/03/20 Discharge Summary PRIMARY CARE PHYSICIAN: Abril Rabago ATTENDING AT TIME OF DISCHARGE: Dr. Leidy Arenas, DO DISCHARGE DIAGNOS(E)S: Demyelination of the brain noted on MRI, suspicious for multiple sclerosis Isolated third nerve palsy Newly discovered acute artery type I malformation Obesity with BMI 45.8 Vitamin D deficiency Nausea secondary to diplopia Headaches likely secondary to diplopia Also seems to have a separate type of headache, likely tension type, not intractable Also has a history of migraines which may be differe different from the above 2 different types of headaches HPI & HOSPITAL COURSE: Patient is a 34-year-old female who has a history of a traumatic injury to her right eye with subsequent lensectomy, and has suffered migraines ever since either from the head trauma or from the mild diplopia. Nevertheless, when she woke up on 04/29/2020 she noticed that she had significant "right eye misalignment " which was significantly worse than she had ever experienced in the past. She was seen and evaluated by her farm operations technical director who apparently recommended that she go to the hospital. She was seen and evaluated in the emerg ency department and found to have right-sided third nerve palsy. Multiple imaging of her head and brain were performed, and MRI showed multifocal enhancing white matter lesions suspicious for demyelinating disease and, and she also has a noted Chiari malformation which was previously unknown. Definitive diagnosis of multiple sclerosis would require a lumbar puncture, however given the Chiari malformation it is recommended that this be performed by neurosurgery, therefore this was not performed during her hospitalization. She was kept inpatient to receive high-dose Solu-Medrol (1000 mg daily) for 5 days, which she passed without incident. Just in the past few days she has experienced a few muscle spasms in the bilateral lower extremities, a dose of cyclobenzaprine was given to her yesterday which made her fall asleep, but nevertheless seemed to assist with both her leg spasms in the tension headache at the base of her skull. She is stable and ready for discharge at this time, and will be sent home on a prednisone taper of 60 mg for 2 days, 40 mg for 2 days, 20 mg for 2 days, 10 mg for 2 days and then stop. PHYSICAL EXAMINATION ON DISCHARGE: GENERAL: Awake, alert, oriented 3. HEENT: Obvious third nerve palsy of the right eye. Additionally due to her lens ectomy, the eye is nonresponsive to light. Left eye appears to be functional and well. CARDIOVASCULAR EXAMINATION: Regular rate and rhythm, with no rubs, gallops, or murmur. RESPIRATORY EXAMINATION: Clear to auscultation bilaterally with no wheezes, rales, or rhonchi. ABDOMINAL EXAMINATION: Soft, nontender, nondistended. Bowel sounds present. EXTREMITIES: No clubbing or edema noted. 2+ pulses in the radial bilaterally. DISPOSITION: Home DISCHARGE INSTRUCTIONS: She will need close follow-up with her primary care provider. Apparently due to issues with insurance follow-up with neurology and neurosurgery will need to be arranged as an outpatient, therefore her PCP will need to send referrals for both of these. Diet as tolerated. Activity as tolerated. If symptoms return, or if you experience worsening of your symptoms, please call your doctor or return to the emergency department. DISCHARGE MEDICATIONS: Continue taking from home: Vitamin C 500 mg by mouth daily Ibuprofen 400 mg every 6 hours PRN Tri-Sprintec 1 tablet daily Fish oil 1000 mg daily New Medications: -Cyclobenzaprine 5 mg by mouth daily as needed for pain or muscle spasms, she may certainly take a half tablet if she would like -Vitamin D 50,000 units once weekly. Continue for 5 additional weeks, and then recheck her vitamin D level, and perhaps put her on a daily vitamin D supplement thereafter -Zofran ODT 4 mg dissolving tablets, 4-8 mg sublingual every 6 hours as needed for nausea -Prednisone taper of 60 mg for 2 days, 40 mg for 2 days, 20 mg for 2 days, 10 mg for 2 days and then stop. ITEMS THAT NEED OUTPATIENT FOLLOWUP: Referral to neurology and referral to neurosurgery for lumbar puncture Vital Signs/I&Os Vital Signs Date Time Temp Pulse Resp B/P (MAP) Pulse Ox O2 Delivery O2 Flow Rate FiO2 05/03/20 06:00 98.0 59 20 111/69 (83) 96 Room Air I&O- Last 24 Hours up to 6 AM 05/03/20 06:00 Intake Total 1546 ml Output Total 3200 ml Balance -1654 ml Laboratory Data Labs 24H Laboratory Tests 2 05/03/20 06:00: Nucleated Red Blood Cells % (auto) 0.0, Anion Gap 9, Glomerular Filtration Rate > 60.0, Calcium Level 8.4L, Total Bilirubin 0.2, Aspartate Amino Transf (AST/SGOT) < 3L, Alanine Aminotransferase (ALT/SGPT) 17, Alkaline Phosphatase 59, Total Protein 6.2L, Albumin 3.0L, Albumin/Globulin Ratio 0.9L CBC/BMP Laboratory Tests 05/03/20 06:00 Discharge Medications Scheduled Ascorbic Acid (Vitamin C) 500 Mg Tablet, 500 MG PO DAILY, (Reported) Ergocalciferol (Vitamin D2) (Drisdol) 1,250 Mcg Capsule, 50,000 UNITS PO Sa@09 Norgestimate-Ethinyl Estradiol (Tri-Sprintec Tablet) 1 Each Tablet, 1 TAB PO DAILY, (Reported) Esbon-3 Fatty Acids/Fish Oil (Fish Oil 1,000 mg Capsule) 1 Each Capsule, 1,000 MG PO DAILY, (Reported) Ondansetron (Ondansetron Odt) 4 Mg Tab.rapdis, 8 MG SL Q6H Prednisone (Prednisone) 20 Mg Tablet, 20 MG PO ASDIRECTED Day1-60mg Day2-60mg Day3-40mg Day4-40mg Day5-20mg Day6-20mg Day7-10mg (0.5 tab) Day8-10mg (0.5 tab) Scheduled PRN Cyclobenzaprine HCl (Cyclobenzaprine HCl) 5 Mg Tablet, 5 MG PO DAILYPRN PRN for PAIN/MUSCLE SPASMS May take 1/2 Tablet Ibuprofen (Ibuprofen) 200 Mg Tablet, 400 MG PO Q6H PRN for HEADACHE OR PAIN, (Reported) Allergies Coded Allergies: No Known Allergies (Unverified , 04/29/20) LEIDY ARENAS DO May 03, 2020 18:11
[2020-05-04 17:06] LABS: ANCA-ATYPICAL <1:20 titer (Neg:<1:20); ANGIOTENSIN 1 CONVERTING ENZYM 32 U/L (14-82); ANTI DS-DNA AB Negative (Negative); ANTINUCLEAR ANTIBODIES DIRECT Negative (Negative); CYTOPLASMIC NEUTROP AB ANCA-C <1:20 titer (Neg:<1:20); HOMOCYST(E)INE SERUM 9.7 umol/L (0.0-14.5); Lyme Disease IgG/IgM Antibodie <0.91 ISR (0.00-0.90); Lyme Disease IgM Ab Quantitati <0.80 index (0.00-0.79); PERINUCLEAR AB ANCA-P <1:20 titer (Neg:<1:20)
== END 2020-05-03 12:04 | disposition home or self-care (01) | DRG 43 ==
LOC: EDBD 16:39 → M ED 16:39 → M ED INP 22:25 → M MSPAV 04-30 01:47
PROVIDERS: ADMIT Internal Medicine; ATTEND Neuromusculoskeletal Medicine & OMM
DX: G37.9 Demyelinating disease of central nervous system, unspecified (principal); G93.5 Compression of brain; Z68.41 Body mass index [BMI] 40.0-44.9, adult; H53.2 Diplopia; F17.210 Nicotine dependence, cigarettes, uncomplicated; H49.01 Third [oculomotor] nerve palsy, right eye; E66.9 Obesity, unspecified; G44.229 Chronic tension-type headache, not intractable; E55.9 Vitamin D deficiency, unspecified; Z79.899 Other long term (current) drug therapy

== ENCOUNTER → 2020-04-29 | Outpatient (CLI) | payer OTHER ==
[~2020-04-29] MED LIST: C 50TAB PO; CYCL5TAB PO; DRIS50003 PO; FISH1000 PO; IBUP-1720 PO; ONDA4TAB6 SL; PRED20TA PO; TRI-TAB; TRI-TAB PO
== END ==
LOC: EDBD → M LAB 12:49
PROVIDERS: ATTEND Ophthalmology
DX: H49.01 Third [oculomotor] nerve palsy, right eye (principal)

== ENCOUNTER 2020-06-03 14:07 | Outpatient (CLI) | payer OTHER ==
[~2020-06-03] VITALS: Ht 165.1 cm; Wt 119.0 kg
[2020-06-03] MEDS ORDERED: methylPREDNISolone 1,000 MG, VIAL MATE ADAPTER 1 EACH in NS 250 ML IV ONE (14:25)
[2020-06-03 14:29] VITALS: BP 122/86
[2020-06-03 15:44] VITALS: BP 121/64
== END 2020-06-03 15:45 | disposition home or self-care (01) ==
LOC: M INFU 14:07
PROVIDERS: ATTEND Psychiatry & Neurology Neurology
DX: G35 Multiple sclerosis (principal)
CPT/HCPCS: 96365; J2930

== ENCOUNTER 2020-06-05 13:08 | Outpatient (CLI) | payer OTHER ==
[2020-06-05 13:27] VITALS: BP 134/73
[2020-06-05] MEDS ORDERED: methylPREDNISolone 1,000 MG, VIAL MATE ADAPTER 1 EACH in NS 250 ML IV ONE (14:00)
[2020-06-05 14:30] VITALS: BP 127/92
== END 2020-06-05 14:30 | disposition home or self-care (01) ==
LOC: M INFU 13:08
PROVIDERS: ATTEND Psychiatry & Neurology Neurology
DX: G35 Multiple sclerosis (principal)
CPT/HCPCS: 96365; J2930

== ENCOUNTER 2020-06-06 09:56 | Outpatient (CLI) | payer OTHER ==
[~2020-06-06] VITALS: Ht 160 cm; Wt 127.0 kg
[2020-06-06 09:56] VITALS: BP 117/69
[2020-06-06] MEDS ORDERED: methylPREDNISolone 1,000 MG, VIAL MATE ADAPTER 1 EACH in NS 250 ML IV ONE (12:00)
== END 2020-06-06 13:57 | disposition home or self-care (01) ==
LOC: M OPCLI4PR 09:56 → M MSPAV 10:00 → M OPCLI4PR 13:57
PROVIDERS: ATTEND Psychiatry & Neurology Neurology
DX: G35 Multiple sclerosis (principal)
CPT/HCPCS: 96365; 96366; J2930

== ENCOUNTER 2020-06-07 10:52 | Outpatient (CLI) | payer OTHER ==
[~2020-06-07] VITALS: Ht 160 cm; Wt 127.0 kg
[2020-06-07] MEDS ORDERED: methylPREDNISolone 1,000 MG, VIAL MATE ADAPTER 1 EACH in NS 250 ML IV ONE (11:30)
== END 2020-06-07 14:05 | disposition home or self-care (01) ==
LOC: M OPCLI4PR 10:52 → M MSPAV 10:54 → M OPCLI4PR 14:05
PROVIDERS: ATTEND Psychiatry & Neurology Neurology
DX: G35 Multiple sclerosis (principal)
CPT/HCPCS: 96365; J2930

== ENCOUNTER → 2023-09-20 | Outpatient (CLI) | payer OTHER ==
[~2023-09-20] MED LIST changes: +COPA1INJ SQ; +LEVE250T5 PO; +ONDA-282 SL; -ONDA4TAB6 SL; +PROAAER10 INH; +VITA200016 PO
== END ==
LOC: M SLEEP HO 10:56
PROVIDERS: ATTEND Nurse Practitioner Adult Health
DX: G47.33 Obstructive sleep apnea (adult) (pediatric) (principal)

== ENCOUNTER 2024-09-14 18:19 | Emergency (ER) | payer OTHER ==
[~2024-09-14] VITALS: Ht 165.1 cm; Wt 122.7 kg
[~2024-09-14 18:19] MED LIST changes: -CYCL5TAB PO; +CYCL5TAB4 PO
[2024-09-14] MEDS: NS (Normal Saline) 0.9% 1,000 ML IV ONE (21:34)
[2024-09-14] MEDS: ACETAMINOPHEN *IV* 1,000 MG in IV 1 EA IV ONE (21:34)
[2024-09-14] MEDS: dexAMETHasone 4 MG/ML 1 ML VIAL IV ONE (21:38)
[2024-09-14] MEDS: KETOROLAC 30 MG/ML 1 ML VIAL IV ONE (21:38)
[2024-09-14] MEDS: MAG SULF 1GM/100ML (MAG RUN) 1 GM in IV 1 EA IV ONE (21:51)
[2024-09-14] MEDS ORDERED: CYCL7.5T32 PO (22:00)
[2024-09-14 23:19] VITALS: BP 101/56; TEMP 97.9; O2SAT 97
== END 2024-09-14 23:25 | disposition home or self-care (01) ==
LOC: M ED 18:19 → EDBD 18:19 → M ED 23:25
DX: S00.01XA Abrasion of scalp, initial encounter (principal); S13.4XXA Sprain of ligaments of cervical spine, initial encounter; V49.40XA Driver injured in collision with unspecified motor vehicles in traffic accident, initial encounter; Y92.488 Other paved roadways as the place of occurrence of the external cause; Y93.89 Activity, other specified; Y99.8 Other external cause status; G35 Multiple sclerosis; Z86.69 Personal history of other diseases of the nervous system and sense organs; Z79.899 Other long term (current) drug therapy; Z79.52 Long term (current) use of systemic steroids; Z79.51 Long term (current) use of inhaled steroids
CPT/HCPCS: 70450; 72125; 96365; 96367; 96375; 99284; J0131; J1100; J1885; J2765; J3475